=== PATIENT | male | born 1965 | race Caucasian/White ===

== ENCOUNTER → 2022-04-06 08:50 | Outpatient (BNVA) | payer OTHER, SELFPAY | PROVIDERS: Referring Provider Physician Assistant; Visit Provider Specialist | DX: R42 Dizziness and giddiness (principal); G43.711 Chronic migraine without aura, intractable, with status migrainosus; G43.809 Other migraine, not intractable, without status migrainosus; Z98.890 Other specified postprocedural states | CPT/HCPCS: 99204 ==

== ENCOUNTER → 2022-06-27 10:15 | Outpatient (BNVA) | payer OTHER, SELFPAY | PROVIDERS: PCP Physician Assistant; Visit Provider Specialist | DX: R42 Dizziness and giddiness (principal); G43.809 Other migraine, not intractable, without status migrainosus; Z86.79 Personal history of other diseases of the circulatory system | CPT/HCPCS: 99213 ==

== ENCOUNTER 2022-09-07 11:37 | Outpatient (RCR) | payer OTHER, SELFPAY | END 2022-09-14 23:59 | disposition home or self-care (01) | LOC: SPT 11:37 | PROVIDERS: Visit Provider Orthopaedic Surgery | DX: Z47.89 Encounter for other orthopedic aftercare (principal) | CPT/HCPCS: 97110; 97161 ==

== ENCOUNTER 2022-09-15 06:00 | Outpatient (RCR) | payer OTHER, SELFPAY | END 2022-10-14 23:59 | disposition home or self-care (01) | LOC: SPT 06:00 | PROVIDERS: Visit Provider Orthopaedic Surgery | DX: Z47.89 Encounter for other orthopedic aftercare (principal) | CPT/HCPCS: 97110 ==

== ENCOUNTER → 2022-11-29 10:04 | Outpatient (BNVA) | payer OTHER, SELFPAY | PROVIDERS: PCP Physician Assistant; Visit Provider Specialist | DX: G43.711 Chronic migraine without aura, intractable, with status migrainosus (principal); R42 Dizziness and giddiness; G43.809 Other migraine, not intractable, without status migrainosus | CPT/HCPCS: 99213 ==

== ENCOUNTER 2023-01-04 20:52 | Emergency (ER) | payer OTHER, SELFPAY ==
[2023-01-04 21:06] VITALS: BP 161/92; PULSE 82; RESP 17; TEMP 36.6; O2SAT 95; BMI 33.2
--- NOTE | 2023-01-04 21:51 | W.ED.ANIMALB ---
HPI - Animal Bite General: Chief Complaint: Animal Bite Stated Complaint: multiple dog bites to fingers Time Seen by Provider: 01/04/23 21:36 History of Present Illness: Patient presents to the ER with dog bites on multiple fingers. Patient tried to take some food from his dog's mouth and his dog bit him on his left pointer finger and right middle finger. He has lacerations to both bleeding is controlled patient has good cap refill to move all fingers as normal. This was the patient's own dog so they are up-to-date on vaccines and they can watch him. Review of Systems General: Reports: 10 or more systems reviewed and unremarkable except in HPI and below Physical Exam Const: COMMON NORMALS: no acute distress, average body habitus, patient oriented x3, no limitations, healthy appearing, alert and well nourished HENMT: COMMON NORMALS: normocephalic, atraumatic, hearing grossly normal bilaterally, external ears normal, Normal external nose present and moist oral mucous membranes HEAD & SCALP: normocephalic and atraumatic NOSE: Normal external nose present EXTERNAL EAR: Yes external ears normal Neck/C-Spine: COMMON NORMALS: no JVD Chest: COMMONS NORMALS: normal inspection of the chest and normal palpation of entire chest wall Resp: COMMON NORMALS: normal respiratory effort, No retractions, No use of accessory muscles and clear to auscultation bilaterally AUSCULTATION: clear to auscultation bilaterally Cardio: COMMON NORMALS: no JVD, regular rate, regular rhythm, S1 normal heart sound present, S2 normal heart sound present, No gallops present (Cardio), No clicks present (Cardio), No murmurs present (Cardio) and No rub (Cardio) RATE: regular rate RHYTHM: regular rhythm HEART SOUNDS: S1 normal heart sound present and S2 normal heart sound present GI: COMMON NORMALS: Normal to inspection, nondistended, normoactive bowel sounds present, Soft to palpation, non-tender, No hepatosplenomegaly present and no masses PALPATION: Yes Soft to palpation and Yes No hepatosplenomegaly present : COMMON NORMALS: Yes no CVA tenderness BLADDER/KIDNEY EXAM: Yes no CVA tenderness Back/Pelvis: COMMON NORMALS: no CVA tenderness Extremity: NARRATIVE EXTREMITY EXAM: Patient has lacerations to left index finger and right middle finger. Neuro: COMMON NORMALS: patient oriented x3 SENSORIUM/ORIENTATION: Yes alert Procedures Laceration Laceration 1: Site: hand (Left pointer finger) Side (If applicable): left Size (cm): 2.0 Description: linear Depth: involves muscle layer Local Anesthetic: lidocaine 1% Amount of anesthesia used (mL): 3 Pre-repair: wound explored and deep structures intact Skin layer closed with: nylon Size (cm): 4-0 Number of sutures: 5 Technique: simple, interrupted Laceration 2: Site: hand (Right middle finger) Side (If applicable): right Size (cm): 3 Description: linear and irregular Depth: involves muscle layer Local Anesthetic: lidocaine 1% Amount of anesthesia used (mL): 3 Pre-repair: wound explored and deep structures intact Skin layer closed with: nylon Size (cm): 4-0 Number of sutures: 8 Technique: simple, interrupted Course Vital Signs: Vital signs: Vital Signs Temperature 97.9 F 01/04/23 21:06 Pulse Rate 82 01/04/23 21:06 Respiratory Rate 17 01/04/23 21:06 Blood Pressure 161/92 01/04/23 21:06 Pulse Oximetry 95 01/04/23 21:06 Oxygen Delivery Me thod Room Air 01/04/23 21:06 MDM - Animal Bite Medical Decision Making Patient presents to the ER with complaints of dog bite to 2 fingers 1 on each hand. He was patient's own dog. Patient was cleaned up sutured up did well with no problem. Patient be discharged home on Keflex and should follow-up with somebody in approximately 10 to 14 days for possible suture removal. Differential Diagnosis Likely bite by animal and dog bite; Unlikely cat bite or rabies contact Medical Records I reviewed the patient's medical records. Lab Data I reviewed the patient's lab results. No radiology studies performed this visit Discharge Plan Discharge Patient Disposition: Home Clinical Impression: Multiple lacerations Dog bite Qualifiers: Encounter type: initial encounter Qualified Code(s): W54.0XXA - Bitten by dog, initial encounter Condition: Stable Prescriptions: New cephalexin 500 mg capsule 500 mg PO Q6H 7 Days Qty: 28 0RF No Action atorvastatin 40 mg tablet 40 mg PO DAILY doxazosin 8 mg tablet 8 mg PO DAILY fluticasone propionate 50 mcg/actuation spray,suspension 1 spray intranasal DAILY Rx Instructions: administer into each nostril hydroxyzine HCl 50 mg tablet 50 mg PO BID lactulose 10 gram/15 mL solution 10 g PO BID sildenafil 100 mg tablet 100 mg PO DAILY PRN Rx Instructions: administer 30 minutes to 4 hours before activity sodium chloride 0.65 % aerosol,spray 1 spray intranasal BID PRN trazodone 150 mg tablet 150 mg PO DAILY zolpidem 5 mg tablet PO lisinopril 40 mg tablet 30 mg PO BID metoprolol succinate 25 mg tablet extended release 24 hr 25 mg PO BID topiramate 50 mg tablet 50 mg PO DAILY Qty: 90 3RF amitriptyline 25 mg tablet 25 mg PO DAILY Qty: 90 3RF Discharge Orders: Discharge ED (Routine); Ordered 01/04/23 Ordered By: Cain Velazquez Referrals: Jacinto Moore PA-C [Primary Care Provider] - 2 weeks Patient Instructions: Animal Bite (ED), Finger Laceration (ED) Activity Restrictions/Additional Instructions: Please take all your antibiotics as directed. Please follow-up with your primary care physician in the next 10 to 14 days for reevaluation and possible suture removal. Coding Level of Care Code ED Yardage Control Operator Forming for Joe Wilkerson
[2023-01-04] MEDS: cephALEXin 500 mg Capsule PO (22:54)
[2023-01-04] MEDS: lidocaine 1% INJ 10 mL (per mL) 20 ML INJECTION (22:57)
[2023-01-04 23:06] VITALS: BP 122/81; PULSE 70; RESP 18; O2SAT 94
== END 2023-01-04 23:07 | disposition home or self-care (01) ==
PROVIDERS: Emergency Provider Emergency Medicine; PCP Physician Assistant
DX: S61.251A Open bite of left index finger without damage to nail, initial encounter (principal); S61.252A Open bite of right middle finger without damage to nail, initial encounter; W54.0XXA Bitten by dog, initial encounter
CPT/HCPCS: 12002; 99283

== ENCOUNTER → 2023-11-14 08:45 | Outpatient (BNVA) | payer OTHER, SELFPAY | PROVIDERS: PCP Physician Assistant; Referring Provider Specialist; Visit Provider Specialist | DX: R29.90 Unspecified symptoms and signs involving the nervous system (principal); R42 Dizziness and giddiness; G43.809 Other migraine, not intractable, without status migrainosus; G43.711 Chronic migraine without aura, intractable, with status migrainosus | CPT/HCPCS: 99214 ==

== ENCOUNTER → 2024-02-14 09:26 | Outpatient (BNVA) | payer OTHER, SELFPAY | PROVIDERS: PCP Physician Assistant; Visit Provider Specialist | DX: R56.9 Unspecified convulsions (principal); G43.711 Chronic migraine without aura, intractable, with status migrainosus; R29.90 Unspecified symptoms and signs involving the nervous system; R42 Dizziness and giddiness | CPT/HCPCS: 99214 ==

== ENCOUNTER → 2024-06-18 08:30 | Outpatient (BNVA) | payer OTHER, SELFPAY | PROVIDERS: PCP Physician Assistant; Referring Provider Specialist; Visit Provider Specialist | DX: R56.9 Unspecified convulsions (principal) | CPT/HCPCS: 95819 ==

== ENCOUNTER → 2024-06-21 14:46 | Outpatient (BNVA) | payer OTHER, SELFPAY | PROVIDERS: PCP Physician Assistant; Visit Provider Specialist | DX: G43.711 Chronic migraine without aura, intractable, with status migrainosus (principal) | CPT/HCPCS: 64615; J0585 ==

== ENCOUNTER → 2024-06-27 09:17 | Outpatient (BNVA) | payer OTHER, SELFPAY | PROVIDERS: PCP Physician Assistant; Visit Provider Specialist | DX: G40.209 Localization-related (focal) (partial) symptomatic epilepsy and epileptic syndromes with complex partial seizures, not intractable, without status epilepticus (principal); G43.711 Chronic migraine without aura, intractable, with status migrainosus | CPT/HCPCS: 99214 ==

== ENCOUNTER → 2024-10-04 10:47 | Outpatient (BNVA) | payer OTHER, SELFPAY | PROVIDERS: PCP Physician Assistant; Visit Provider Specialist | DX: G43.711 Chronic migraine without aura, intractable, with status migrainosus (principal) | CPT/HCPCS: 64615; 99214; J0585; J9999 ==

== ENCOUNTER → 2024-10-29 15:36 | Outpatient (BNVA) | payer OTHER, SELFPAY | PROVIDERS: PCP Physician Assistant; Visit Provider Specialist | DX: G43.711 Chronic migraine without aura, intractable, with status migrainosus (principal); G40.209 Localization-related (focal) (partial) symptomatic epilepsy and epileptic syndromes with complex partial seizures, not intractable, without status epilepticus | CPT/HCPCS: 99214 ==

== ENCOUNTER → 2025-01-23 10:27 | Outpatient (BNVA) | payer OTHER, SELFPAY | PROVIDERS: PCP Physician Assistant; Visit Provider Specialist | DX: G43.711 Chronic migraine without aura, intractable, with status migrainosus (principal); G40.209 Localization-related (focal) (partial) symptomatic epilepsy and epileptic syndromes with complex partial seizures, not intractable, without status epilepticus; R03.0 Elevated blood-pressure reading, without diagnosis of hypertension | CPT/HCPCS: 64615; 99213; J0585; J9999 ==

== ENCOUNTER → 2025-02-26 14:21 | Outpatient (BNVA) | payer OTHER, SELFPAY | PROVIDERS: PCP Physician Assistant; Visit Provider Specialist | DX: G43.711 Chronic migraine without aura, intractable, with status migrainosus (principal); G40.209 Localization-related (focal) (partial) symptomatic epilepsy and epileptic syndromes with complex partial seizures, not intractable, without status epilepticus; G40.909 Epilepsy, unspecified, not intractable, without status epilepticus; R03.0 Elevated blood-pressure reading, without diagnosis of hypertension | CPT/HCPCS: 99214 ==

== ENCOUNTER 2025-03-17 06:25 | Inpatient (IN) | payer OTHER, SELFPAY ==
--- OUTSIDE RECORDS SUMMARY | 2025-03-10 04:15 | XMS_ITS ---
Author Organization [facility] Address [address] [place] [address] Care Team Providers Care Gunite Mixer Name Role Phone Jacinto Sosa Primary Care Provider Aung Vogel [phone] [facility] Unannamdi iliman Unavailable REASON FOR VISIT 9M F/U KRYSTAL RM 06/13/24 Encounters Encounter Location Date Provider Diagnosis [facility] [address] [place] [address], [place] [address] 03/10/2025 Aung Fish Plan Of Treatment Next Appt Details Provider Name:Aung Fish, 0 08/20/2025 08:45:00 AM, [address] [place] [address], [place], [address], Provider Name:Aung Fish, 0 08/20/2025 09:45:00 AM, [address] [place] [address], [place], [address], Progress Notes * Leydi STEWART EDOB:[birth year] (59 yo M)Acc No.[id number]:03/10/2025 Progress Notes Patient: Leydi Lopez Provider: Duarte Fish MD :1965 A ge:59 Y S ex:Male Date:03/10/2025 Address:[address] [address], [id number] Pcp:LANE Sosa Subjective: * Chief Complaints: * 9 M F/U KRYSTAL SHERMAN OV 06/13/24 * Electronic signature of Aung Fish MD on 03/17/2025 at 06:32 AM BANKING AND FINANCE INSTRUCTOR Sign off status: Pending * Provider: Duarte Fish MD Date: 05/10/2024 Generated for Stephenie louie/Hardik/Torres on: 05/18/2024 06:32 AM BANKING AND FINANCE INSTRUCTOR
[2025-03-17] VITALS (27 sets, daily range): BP systolic 104–135; BP diastolic 61–76; PULSE 66–89; RESP 14–22; TEMP 36.5–39.6; O2SAT 90–100; BMI 34.8; BMI 36.8
--- OUTSIDE RECORDS SUMMARY | 2025-03-17 06:33 | XMS_ITS | Patient Health Record ---
Author Organization [facility] Address [address] [place] [address] Care Team Providers Care Electronic Transaction Implementer Name Role Phone MooreJacinto AHUMADA Primary Care Provider Aung Vogel Unavailable [phone] [facility] Unava ilable Unavailable Luisa Caceres Unavailable [phone] Allergies Allergen (clinical drug ingredient) Drug/Non Drug Allergy documented on EMR Reaction Allergy Type Onset Date Status No Known Drug Allergy Unknown Drug Allergy Active Reason For Referral Reason RFS 03/10/25 APPT FA XED CARDIOLOGY/ EVAL AND TREAT/1 [facility] Diagnosis 1 Palpitations (R00.2) Referring Provider First Name Poonam dennison Referring Provider Last Name [facility] Referring Provider [facility] Referred Organization [facility] Referred Provider Aung Fish Referred Address [address] [place] [address],[place],[address],[place] Referred Provider Specialty Cardiology Referral Priority Routine Reason APPT 03/10/25 CARD IOLOGY/ EVAL & TREAT/ 1 [facility] Diagnosis 1 Presence of prosthet ic heart valve (Z95.2) Referring Provider First Name Poonam dennison Referring Provider Last Name [facility] Referring Provider [facility] Referred Organization [facility] Referred Provider Aung Fish Referred Address [address],[place],[address],[place] Referred Provider Specialty Cardiology Referral Priority Routine Medications Medication SIG (Take, Route, Frequency, Duration) Notes Start Date End Date Status Aspir-Low 81 MG Tablet Delayed Release 1 tablet Orally Once a day Active Citalopram Hydrobromide 40 MG Tablet 1 tablet Orally Once a day 02/26/2025 Active Doxazosin Mesylate 4 MG Tablet 1 tablet Orally Once a day Active traZODone HCl 150 MG Tablet 1 tablet at bedtime Orally Once a day PRN Active Atorvastatin Calcium 40 MG Tablet 0.5 tablet Orally Once a day Active Botox 100 UNIT Solution Reconstituted as directed Injection migraines Activ e Loratadine 10 MG Tablet 1 tablet Orally Once a day Active Sildenafil Citrate 50 MG Tablet 1 tablet as needed Orally PRN Active Zolpidem Tartrate 10 MG Tablet 1 tablet at bedtime Orally Once a day Active Lactulose 10 GM Packet 1 packet as neede d Orally Once a day Active Vitamin D 25 MCG (1000 UT) Tablet 1 tablet Orally Once a day Active Lisinopril 30 MG Tablet 1 tablet Orally Once a day Active Zonisamide 100 MG Capsule 1 capsule Oral ly 5x daily 02/26/2025 Active Social History Tobacco Use: Social History Observation Description Date Details (start date - stop date) Former Smoker NA - NA Social History Drugs/Alcohol: Social Info Question Answer Notes Caffeine Intake: more than 4 cups per day cou ple sodas, coffee, monsters occasionally Tobacco Use: Social Info Question Answer Notes xTobacco Use/Smoking Are you a former smoker How long has it been since you last smoked? 5-10 years Additional Details Category Social Info Options Details Drugs/Alcohol: Do you drink alcohol? No zzMigrated Social History Tobacco Use: (Tobacco Use/Smoking): Are you a:: former smoker ; Section Notes: Alcohol denies Caffiene - positive Alcohol denies Caffiene + Alcohol denies Caffiene + Alcohol denies Caffiene + Alcohol denies Caffiene - positive Alcohol denies Caffiene - positive Problems Problem Type SNOMED Code ICD Code Onset Dates Problem Status W/U Status Risk Notes Problem Palpitations (92795465) Palpitations (R00.2) Active confirmed Problem Electrocardiogram abnormal (402445768) Abnormal electrocardiogram [ECG] [EKG] (R94.31) Active confirmed Problem History of heart valve repair with prosthesis (584421567574634) Presence of prosthetic heart valve (Z95.2) Active confirmed Problem Mixed hyperlipidemia (090131186) Mixed hyperlipidemia (E78.2) Active confirmed Problem Essential hypertension (08750573) Benign essential HTN (I10) Active confirmed Problem Fatigue (76141930) Fatigue, unspecified type (R53.83) Active confirmed Problem Obstructive sleep apnea syndrome (89188005) FANNY (obstructive sleep apnea) (G47.33) Active confirmed Problem Dizziness (992275276) Dizziness (R42) Active confirmed Problem Continuous positive airway pressure ventilation treatment (73070719) CPAP (continuous positive airway pressure) dependence (Z99.89) Active confirmed Problem Mitral regurgitation (90090203) Mitral regurgitation (I34.0) Active confirmed Problem History of heart valve repair with prosthesis (340401444593483) Mitral valve replaced (Z95.2) Active confirmed Vital Signs Heart Rate 66 /min 02/27/2025 Height-cm 182.88 cm 02/27/2025 Oximetry 94 % 02/27/2025 Blood pressure diastolic 82 mm Hg 02/27/2025 Weight-kg 113.85 kg 02/27/2025 Height 72 in 02/27/2025 Blood pressure systolic 128 mm Hg 02/27/2025 Weight 251 lbs 02/27/2025 BMI 34.04 kg/m2 02/27/2025 Encounters Encounter Location Date Provider Diagnosis [facility] [address] [place] [address], [place] [address] 06/13/2024 Luisa [place] Mitral valve replace d Z95.2 ; Mixed hyperlipidemia E78.2 ; Benign essential HTN I10 ; FANNY (obstructive sleep apnea) G47.33 and CPAP (continuous positive airway pressure) dependence Z99.89 [facility] [address] [place] [address] 02/27/2025 [place] Mitral valve replace d Z95.2 ; Benign essential HTN I10 and Mixed hyperlipidemia E78.2 Assessments Encounter Date Diagnosis (ICD Code) Assessment Notes Treatment Notes Treatment Clinical Notes Section Notes 02/27/2025 Mitral valve replaced (ICD-10 - Z95.2) 06/13/2024 Mitral valve replaced (ICD-10 - Z95.2) 02/27/2025 Benign essential HTN (ICD-10 - I10) 06/13/2024 Mixed hyperlipidemia (ICD-10 - E78.2) 06/13/2024 Benign essential HTN (ICD-10 - I10) 02/27/2025 Mixed hyperlipidemia (ICD-10 - E78.2) 06/13/2024 FANNY (obstructive sleep apnea) (ICD-10 - G47.33) 06/13/2024 CPAP (continuous positive airway pressure) dependence (ICD-10 - Z99.89) 06/13/2024 Other Continue with current medical therapies. Worsening cardiac symptoms to report reviewed. 02/27/2025 Other We will continue his current medical regimen. I will see him back in the office in 6 months with a repeat echo at that point. We will see him back sooner as symptoms warrant. Plan Of Treatment Pending Test Test Name Order Date Echo Complete [id number] 02/27/2025 Next Appt Details Provider Name:Aung Fish, 0 08/20/2025 08:45:00 AM, [address] [place], [address], Provider Name:Aung Fish, 0 08/20/2025 09:45:00 AM, [address] [place], [address], Insurance Providers Payer Name Payer Address Payer Phone Subscriber Number Group Number Insured Name Patient Relationship to Insured Coverage Start Date Coverage End Date [employer] [address] [place] [phone] [id number] Leydi Sheehan Self - patient is the insured Medical (General) History Medical History History ICD Code Hypertension Hyperlipidemia Arthritis Seasonal Allergies Constipation Slow urinary stream Sleep apnea Anxiety Mitral Valve prolapse covid vax w/ booster Covid positive 09/2021 Surgical History Surgery Date(Month/Year) Mitral Valve Replacement [facility] [place], Pig valve 11/2017 Mitral Valve Replacement ( Tissue) 8 unbilical hernia repair 05/2014 Right Inguinal Hernia Repair 06/2018 implanted heart monitor 2016 Heart monitor removed 2020 Knee Surgery Hospitalization History Reason Date(Month/Year)
--- OUTSIDE RECORDS SUMMARY | 2025-03-17 06:33 | XMS_ITS | Patient Health Record ---
Author Organization [facility] Address [address] [place] [address] Care Team Providers Care Thermo Cementing Folder Operator Name Role Phone Aaa, Provider Primary Care Provider Unavailabl e Reason For Referral No Information Immunizations Vaccine Route Administration Date Status Comme nts Pfizer-BioNTech COVID-19 30mcg/0.3ml (Old) IM Intramuscular 04/19/2021 Administered Plan Of Treatment No Information Insurance Providers Payer Name Payer Address Payer Phone Subscriber Number Group Number Insured Name Patient Relationship to Insured Coverage Start Date Coverage End Date [employer] MED[employer] PART B [address] [address] [place] [address] [id number] Leydi Sheehan Self - patient is the insured
--- NOTE | 2025-03-17 06:59 | W.ED.ABDPA2 ---
HPI - Abdominal Pain General: Chief Complaint: Abdominal Pain Stated Complaint: abdominal pain Time Seen by Provider: 03/17/25 06:56 History of Present Illness: 59-year-old man with a history of hypertension, hyperlipidemia, temporal seizures, bioprosthetic mitral valve replacement and migraines who presents to the emergency room with right lower quadrant abdominal pain. Says this started yesterday. Has had some nausea but no vomiting. Right lower quadrant pain. No hematuria or dysuria but he says after he urinated today and went and sat down it started hurting worse. He said it started more central as moved further to the right. No fevers. No chest pain. No altered mental status. Normal bowel movements Related Data Home Medications ?Medication ?Instructions ?Recorded ?Confirmed atorvastatin 40 mg tablet 20 mg PO DAILY 04/06/22 03/17/25 doxazosin 8 mg tablet 4 mg PO DAILY 04/06/22 03/17/25 lactulose 10 gram/15 mL oral 10 g PO BID 04/06/22 03/17/25 solution sildenafil 100 mg tablet 100 mg PO DAILY PRN Erectile 04/06/22 03/17/25 Dysfunction trazodone 150 mg tablet 300 mg PO BEDTIME PRN Sleep 04/06/22 03/17/25 zolpidem 5 mg tablet 5 mg PO BEDTIME 04/06/22 03/17/25 acetaminophen 300 mg-codeine 30 mg 1 tab PO .Q4-6H 03/17/25 03/17/25 tablet lamotrigine 100 mg tablet 100 mg PO BID 03/17/25 03/17/25 lisinopril 30 mg tablet 30 mg PO DAILY 03/17/25 03/17/25 Previous Rx's ?Medication ?Instructions ?Recorded diazepam 10 mg tablet 10 mg PO ONCE PRN anxiety 24 hours 01/23/25 #2 tabs citalopram 20 mg tablet 40 mg (2 x 20 mg) PO DAILY #180 02/26/25 tabs zonisamide 100 mg capsule 500 mg (5 x 100 mg) PO DAILY #450 02/26/25 caps Allergies Allergy/AdvReac Type Severity Reaction Status Date / Time No Known Allergies Allergy Verified 01/23/25 10:51 Review of Systems Narrative: Constitutional symptoms: Negative except as documented in HPI. Skin symptoms: Negative except as documented in HPI. Eye symptoms: Negative except as documented in HPI. ENMT symptoms: Negative except as documented in HPI. Respiratory symptoms: Negative except as documented in HPI. Cardiovascular symptoms: Negative except as documented in HPI. Gastrointestinal symptoms: Negative except as documented in HPI. Genitourinary symptoms: Negative except as documented in HPI. Musculoskeletal symptoms: Negative except as documented in HPI. Neurologic symptoms: Negative except as documented in HPI. Psychiatric symptoms: Negative except as documented in HPI. Endocrine symptoms: Negative except as documented in HPI. [facility] ED PFSH: Medical History (Updated 03/17/25 @ 09:57 by Dean Vicente MD) Hypertension Social History Smoking and tobacco/nicotine status: former use of tobacco/nicotine Physical Exam Narrative: EXAM NARRATIVE: General: Alert, no acute distress. Skin: Warm, dry. Head: Normocephalic, atraumatic. Neck: Supple, trachea midline. Eye: Extraocular movements are intact. Ears, nose, mouth and throat: mucosa moist. Cardiovascular: Regular, Normal peripheral perfusion. Respiratory: Lungs are clear to auscultation, respirations are non-labored, breath sounds are equal, Symmetrical chest wall expansion. Gastrointestinal: Soft, patient is very tender to palpation in the right lower quadrant, Non distended Musculoskeletal: Normal ROM, no deformity. Neurological: Alert and oriented, No focal neurological deficit observed. Psychiatric: Cooperative, appropriate mood & affect. Course Vital Signs: Vital signs: Vital Signs Temperature 98.2 F 03/17/25 06:56 Pulse Rate 77 03/17/25 09:51 Respiratory Rate 15 03/17/25 09:47 Blood Pressure 113/69 03/17/25 09:51 Pulse Oximetry 94 03/17/25 09:51 Oxygen Delivery Me thod Room Air 03/17/25 09:47 MDM - Abdominal Pain Medical Decision Making Medical decision making Patient's reason for coming to the emergency room: Right lower quadrant abdominal pain Social determinants: Patient is disabled. I reviewed the patient's medical record. 59-year-old man with a history of hypertension, hyperlipidemia, temporal seizures, bioprosthetic mitral valve replacement and migraines I reviewed the patient's current home meds Patient is not on any anticoagulation. Alternate historians: None Differential diagnosis for this patient with right lower quadrant abdominal pain including but not limited to and based on the above HPI, review of systems and physical exam: Ureterolithiasis. Urinary tract infection. Appendicitis. colitis. small bowel obstruction. Crohn's flare. Pancreatitis. Cholelithiasis or cholecystitis. Hepatitis. Diverticulitis. Constipation. ovarian cyst. ovarian torsion Workup: Orders were placed to evaluate differential diagnosis based on the above differential, HPI and exam: Lab Review: Laboratory results were reviewed and interpreted by myself the emergency room physician. Mild leukocytosis. Elevation of the CRP as well. No anemia. No renal failure. Urinalysis is negative for infection. Flu COVID and RSV are negative. Lactic acid was negative but I did add some blood cultures at the time antibiotics were ordered. Patient had been taken to the preop and so nursing has called preop to request cultures to be drawn. CT of the abdomen pelvis with contrast: Acute appendicitis with distended fecalized appendix with few small locules of surrounding air compatible with perforation. No evidence of drainable abscess or fluid collection. This was reviewed and interpreted by myself the emergency room physician. I also reviewed the radiology report. I discussed this on the telephone with the radiologist Assessment of risk: Level of risk: Moderate risk patient. He does have several comorbidities. Hospitalization considerations: Patient is being admitted for acute appendicitis. Reexamination: Patient remained stable. No increased work of breathing. No altered mental status. No focal motor deficits. Consultation: I spoke with Dr. Mandel. He is taking the patient to the OR. He request consult from medicine for medical management. Consultation: I spoke with Dr. Vicente with the hospitalist service who is consulting on the patient. He saw him here in the emergency room. Assessment and plan: Acute appendicitis with perforation Dehydration ?2 L normal saline bolus and IV Zosyn in the emergency room -I discussed the patient with the surgeon on-call who is admitting the patient. - Discussed findings and plan with patient. Answered any questions. - All laboratory values were reviewed and interpreted personally by myself, the ER physician - All imaging was reviewed and interpreted personally by myself, the ER physician. - Evaluation and treatment of this problem were appropriate in the emergency setting Lab Data 03/17/25 07:41 03/17/25 07:41 Labs/Radiology: Radiology Impressions Abdomen/Pelvis CT 03/17/25 07:52 IMPRESSION: 1. Acute appendicitis with distended fecalized appendix with a few small locules of surrounding air compatible with perforation. No evidence of drainable abscess or fluid collection. 2. Small amount of free fluid in the pelvis. 3. Small LEFT pleural effusion. Notified Mikaela Landeros MD at 03/17/2025 9:16 AM. Laboratory Results WBC 14.03 10^3/uL (3.29-11.43) H 03/17/25 07:41 RBC 4.92 10^6/uL (3.85-5.65) 03/17/25 07:41 Hgb 14.90 g/dL (11.27-16.99) 03/17/25 07:41 Hct 45.5 % (37-53) 03/17/25 07:41 MCV 92.5 fl (82-101) 03/17/25 07:41 MCH 30.3 pg (27-33) 03/17/25 07:41 MCHC 32.7 g/dL (30-55) 03/17/25 07:41 RDW 13.8 % (12.1-15.1) 03/17/25 07:41 Plt Count 164 10^3/cmm (157-399) 03/17/25 07:41 MPV 9.8 fL (7.4-10.4) 03/17/25 07:41 Neut % (Auto) 90.0 % 03/17/25 07:41 Lymph % (Auto) 6.1 % 03/17/25 07:41 [place] % (Auto) 3.3 % 03/17/25 07:41 Eos % (Auto) 0.2 % 03/17/25 07:41 Baso % (Auto) 0.1 % 03/17/25 07:41 Neut # (Auto) 12.61 10^3/uL (1.8-7.7) H 03/17/25 07:41 Lymph # (Auto) 0.9 10^3/uL (0.8-4.8) 03/17/25 07:41 [place] # (Auto) 0.5 10^3/uL (0.2-0.9) 03/17/25 07:41 Eos # (Auto) 0.0 10^3/uL (0.0-0.8) 03/17/25 07:41 Baso # (Auto) 0.0 10^3/uL (0.0-0.1) 03/17/25 07:41 Nucleated RBC % (auto) 0 % 03/17/25 07:41 Nucleated RBCs # 0.0 /100WBC 03/17/25 07:41 Sodium 136 mmol/L (136-145) 03/17/25 07:41 Potassium 4.4 mmol/L (3.5-5.1) 03/17/25 07:41 Chloride 105 mmol/L (98-107) 03/17/25 07:41 Carbon Dioxide 19 mmol/L (22-29) L 03/17/25 07:41 Anion Gap 16.4 (5-19) 03/17/25 07:41 BUN 14 mg/dL (6-20) 03/17/25 07:41 Creatinine 1.1 mg/dL (0.7-1.2) 03/17/25 07:41 GFR Calculation 68.5 mL/min (90-130) L 03/17/25 07:41 Glucose 142 mg/dL (65-115) H 03/17/25 07:41 Calculated Osmolality 285 mOsm/kg (285-295) 03/17/25 07:41 Lactic Acid 1.7 mmol/L (0.5-2.2) 03/17/25 07:41 Calcium 9.1 mg/dL (8.5-10.5) 03/17/25 07:41 Total Bilirubin 1.0 mg/dL (0.15-1.2) 03/17/25 07:41 AST 16 U/L (0-40) 03/17/25 07:41 ALT 22 U/L (0-41) 03/17/25 07:41 Alkaline Phosphatase 74 U/L (40-130) 03/17/25 07:41 C-Reactive Protein 82.2 mg/L (0.0-4.9) H 03/17/25 07:41 Total Protein 7.1 g/dL (6.6-8.7) 03/17/25 07:41 Albumin 4.3 g/dL (3.5-5.2) 03/17/25 07:41 Globulin 2.8 g/dL (1.3-4.6) 03/17/25 07:41 Lipase 74 U/L (13-60) H 03/17/25 07:41 Urine Color Yellow (Yellow) 03/17/25 08:21 Urine Appearance Cloudy (CLEAR) A 03/17/25 08:21 Urine pH 8.0 (5-7) A 03/17/25 08:21 Ur Specific [place] 1.018 (1.005-1.030) 03/17/25 08:21 Urine Protein Negative (Negative) 03/17/25 08:21 Urine Glucose (UA) Negative (Normal) 03/17/25 08:21 Urine Ketones Negative (Negative) 03/17/25 08:21 Urine Blood Negative (Negative) 03/17/25 08:21 Urine Nitrate Negative (Negative) 03/17/25 08:21 Urine Bilirubin Negative (Negative) 03/17/25 08:21 Urine Urobilinogen 0.2 mg/dL (Negative) 03/17/25 08:21 Ur Leukocyte Esterase Negative (Negative) 03/17/25 08:21 Urine RBC None /hpf (0-2) 03/17/25 08:21 Urine WBC None /hpf (0-5) 03/17/25 08:21 Ur Squamous Epith Cells None /hpf (0-5) 03/17/25 08:21 Amorphous Sediment Not Reportable 03/17/25 08:21 Urine Bacteria 2+ /hpf (NONE) H 03/17/25 08:21 Influenza A (PCR) Negative (Negative) 03/17/25 07:50 Influenza Type B (PCR) Negative (Negative) 03/17/25 07:50 RSV (PCR) Negative (Negative) 03/17/25 07:50 SARS-CoV-2 (PCR) Negative (Negative) 03/17/25 07:50 All radiology interpretation(s) finalized by discharge Discharge Plan Discharge Patient Disposition: Admitted As Inpatient Clinical Impression: Acute appendicitis with rupture, Dehydration Condition: Stable Coding Level of Care Code ED Fur Drummer for Joe Wilkerson
[2025-03-17] MEDS: morphine 4 mg/mL SDV 1 mL IVP ×2 (07:45→18:28)
[2025-03-17] MEDS: ondansetron 2 mg/ML SDV 2 mL 4 MG IVP (07:45)
--- NOTE | 2025-03-17 07:52 | CT_ITS ---
WS: [id number] CT ABDOMEN PELVIS TECHNIQUE: Contrast-enhanced CT of the abdomen and pelvis with coronal and sagittal reformatted images. CLINICAL INFORMATION: rlq abd pain COMPARISON: None. DLP: 1184.[address] scans at [facility] use at least one of these dose optimization techniques: automated exposure control; mA and/or kV adjustment per patient size (includes targeted exams where dose is matched to clinical indication); or iterative reconstruction. FINDINGS: Inflammatory stranding and edema in the RIGHT lower quadrant with distended fecalized appendix compatible with acute appendicitis. A few small locules of surrounding air compatible with contained perforation. Surrounding edema. No drainable abscess or fluid collection at this time. Trace LEFT pleural fluid. Interstitial edema in the lung bases with subsegmental atelectasis. Prior sternotomy. Fatty liver. Spleen granulomas. Small esophageal hiatal hernia. Adrenal glands are normal. Normal pancreatic parenchymal enhancement. Splenic artery calcification. Normal portal vein and splenic vein. Mild fluid distention of the gallbladder. Small amount of free fluid in the pelvis. No hydronephrosis in either kidney. Fat-containing RIGHT inguinal hernia. CT/CT abdomen pelvis w con* [id number] IMPRESSION: 1. Acute appendicitis with distended fecalized appendix with a few small locul es of surrounding air compatible with perforation. No evidence of drainable abs cess or fluid collection. 2. Small amount of free fluid in the pelvis. 3. Small LEFT pleural effusion. Notified Mikaela Landeros MD at 03/17/2025 9:16 AM.
[2025-03-17 08:00] LABS: Hematocrit 45.5 % (37-53); Hemoglobin 14.90 g/dL (11.27-16.99); Mean Corpuscular HGB Conc 32.7 g/dL (30-55); Mean Corpuscular Hemoglobin 30.3 pg (27-33); Mean Corpuscular Volume 92.5 fl (82-101); Nucleated Red Blood Cells % 0 %; Platelet Count 164 10^3/cmm (157-399); Red Blood Count 4.92 10^6/uL (3.85-5.65); White Blood Count 14.03 10^3/uL (3.29-11.43)
[2025-03-17 08:18] LABS: Lactic Sepsis W/Reflex 1.7 mmol/L (0.5-2.2)
[2025-03-17 08:23] LABS: Alanine Aminotransferase 22 U/L (0-41); Albumin Level 4.3 g/dL (3.5-5.2); Alkaline Phosphatase 74 U/L (40-130); Anion Gap 16.4 (5-19); Aspartate Amino Transferase 16 U/L (0-40); Blood Urea Nitrogen 14 mg/dL (6-20); Calcium 9.1 mg/dL (8.5-10.5); Carbon Dioxide 19 mmol/L (22-29); Chloride 105 mmol/L (98-107); Creatinine Clr Calc Pharmacy 92.5969; Globulin 2.8 g/dL (1.3-4.6); Glucose 142 mg/dL (65-115); Lipase 74 U/L (13-60); Osmolality Calculated 285 mOsm/kg (285-295); Potassium 4.4 mmol/L (3.5-5.1); Sodium 136 mmol/L (136-145); Total Protein 7.1 g/dL (6.6-8.7)
[2025-03-17] MEDS: iohexol 350 mg/mL 500 mL Btl (per mL) IV (08:35)
[2025-03-17 08:42] LABS: Glucose Urine UA Negative (Normal); Nitrate Urine Negative (Negative); Specific Gravity, Urine 1.018 (1.005-1.030)
[2025-03-17 08:49] LABS: Universal Test for UA Present (0)
[2025-03-17 09:04] LABS: UA Manual Slide Review YES; UA Slide Review UA Slide Review Perf
[2025-03-17 09:33] LABS: Respiratory Syncytial Virus Ce NEGATIVE (Negative); SARS-CoV-2 PCR NEGATIVE (Negative)
--- NOTE | 2025-03-17 09:33 | P.HP_ITS ---
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 He presented to the ER noted to be slightly tachycardic, elevated white count, elevated CRP and a CT scan showed evidence of acute appendicitis with perforation. Of note patient has history of previous ventral hernia repair with mesh. Review of Systems 2 General: Reports: 10 or more systems reviewed and unremarkable except in HPI and below Medications/Allergies Home Medications ?Medication ?Instructions ?Recorded ?Confirmed ?Last Taken ?Type atorvastatin 40 mg tablet 40 mg PO DAILY 04/06/2202/15 Unknown History doxazosin 8 mg tablet 8 mg PO DAILY 04/06/2202/26 Unknown History lactulose 10 gram/15 mL oral 10 g PO BID 04/06/2202/15 Unknown History solution lisinopril 40 mg tablet 30 mg PO BID 04/06/22 Unknown History sildenafil 100 mg tablet 100 mg PO DAILY PRN 04/06/22 02/26/25 Unknown History trazodone 150 mg tablet 150 mg PO DAILY 04/06/2204/10 Unknown History zolpidem 5 mg tablet PO 04/06/22 02/26/25 Unknown History diazepam 10 mg tablet 10 mg PO ONCE PRN anxiety 24 hours 01/23/25 02/26/25 Unknown Rx #2 tabs citalopram 20 mg tablet 40 mg (2 x 20 mg) PO DAILY # 180 02/26/25 02/26/25 Unknown Rx tabs zonisamide 100 mg capsule 500 mg (5 x 100 mg) PO DAILY #450 02/26/25 02/26/25 Unknown Rx caps Allergies Allergy/AdvReac Type Severity Reaction Status Date / Time No Known Allergies Allergy Verified 01/23/25 10:51 PFSH Acute 2 PFSH: Social History Smoking and tobacco/nicotine status: former use of tobacco/nicotine Vitals/I&O/Wt Last Vital Signs Temp 98.2 F 03/17/25 06:56 Pulse 73 03/17/25 06:56 Resp 16 03/17/25 06:56 Pulse Ox 92 03/17/25 06:56 O2 Del Method Room Air 03/17/25 06:56 Weight last 48 hrs Weight 250 lb Physical Exam 2 Narrative: Abdominal examination shows an abdominal soft is tender with localized peritonitis in the right lower quadrant. Rebound tenderness in the right lower quadrant, McBurney positive Data 03/17/25 07:41 03/17/25 07:41 A&P Assessment and plan 1. Acute appendicitis with rupture: Plan: After complete history, physical examination and review of all available clinical data the following is my assessment. Patient presents with an acute appendicitis with perforation, I have independently reviewed imaging which is compatible with a distended appendix with the perforation noted by free air surrounding the appendix. Patient has been started on IV fluids and antibiotics. Due to patient significant medical history including history of valve replacement also temporal lobe epileptic seizures I will obtain a medical consultation, I have offered the patient a laparoscopic possible open appendectomy, I have discussed all risk benefits of the procedure including the risk of injuring or surrounding structures including the small bowel, colon, Bladder ureter, great vessels. I have explained that there is increased risk for abscess formation, he will require 2 to 3 days of antibiotic therapy before being discharged. Have also Explained that since he had history of ventral hernia repair he has increased risk of intra-abdominal viscus injury during entry and that we will have to go through his mesh in order to get into the abdomen. He also understand that he is of the increased risk for the need of conversion to open procedure and possible need of colectomy he shows understanding agrees with the plan. Procedure will be booked immediately due to the emergent nature of the presentation. PDMP PDMP Reviewed: Not Reviewed Attestations 2 Medical Necessity Statement*: Patient will require 72 hours of hospital stay for IV antibiotics after surgery Coding Level of Care Code Acute Code for [facility] Diagnoses Acute appendicitis with rupture K35.32
--- NOTE | 2025-03-17 09:47 | ANES.PREANE2 ---
Pre-Anesthetic Assessment Height/Weight: Height 1.8 m Weight 113.398 kg Temp Pulse Resp Pulse Ox O2 Del Method 98.2 F 73 16 92 Room Air 03/17/25 06:56 03/17/25 06:56 03/17/25 06:56 03/17/25 06:56 03/17/25 06:56 Operation Date: 03/17/25 10:10 Proposed Procedures p Laparoscopic Appendectomy(Not Applicable) - Juancarlos Waldron MD Familial anesthetic complications: None Was Beta David taken within 24 hours: N/A Was Clonidine taken within 24 hours: N/A Last intake: Intake Last Liquid Date 03/16/25 Last Liquid Time 20:00 Last Solid Date 03/16/25 Last Solid Time 20:00 Social No alcohol and No tobacco Exam alert, oriented x 3, clear to auscultation bilaterally and regular rate & rhythm Airway Mallampati: Class IV Dentition: full CV/HEM Hypertension MVP s/p porcine valve replacement Metabolic Hyperlipidemia and Morbid Obesity Neuropsych Seizure Anesthetic Plan ASA status: 3E Anesthesia: General Risk of > 500 ml blood loss (7ml/kg in children): No Medications/Allergies Home Medications ?Medication ?Instructions ?Recorded ?Confirmed ?Last Taken ?Type atorvastatin 40 mg tablet 20 mg PO DAILY 04/06/22 03/17/25 03/16/25 History doxazosin 8 mg tablet 4 mg PO DAILY 04/06/22 03/17/25 03/16/25 History lactulose 10 gram/15 mL oral 10 g PO BID 04/06/22 03/17/25 Unknown History solution sildenafil 100 mg tablet 100 mg PO DAILY PRN Erectile 04/06/22 03/17/25 Unknown History Dysfunction trazodone 150 mg tablet 150 mg PO DAILY 04/06/22 03/17/25 03/16/25 History zolpidem 5 mg tablet 5 mg PO BEDTIME 04/06/22 03/17/25 03/16/25 History diazepam 10 mg tablet 10 mg PO ONCE PRN anxiety 24 hours 01/23/25 03/17/25 Unknown Rx #2 tabs citalopram 20 mg tablet 40 mg (2 x 20 mg) PO DAILY #180 02/26/25 03/17/25 03/16/25 Rx tabs zonisamide 100 mg capsule 500 mg (5 x 100 mg) PO DAILY #450 02/26/25 03/17/25 03/16/25 Rx caps lisinopril 30 mg tablet 30 mg PO DAILY 03/17/25 03/17/25 03/16/25 History Allergies Allergy/AdvReac Type Severity Reaction Status Date / Time No Known Allergies Allergy Verified 01/23/25 10:51 [facility] Anesthesia Social History Smoking and tobacco/nicotine status: former use of tobacco/nicotine Data Anesthesia 03/17/25 07:41 03/17/25 07:41 Short CBC 03/17/25 Range/Units 07:41 WBC 14.03 H (3.29-11.43) 10^3/uL Hgb 14.90 (11.27-16.99) g/dL Hct 45.5 (37-53) % MCV 92.5 (82-101) fl Plt Count 164 (157-399) 10^3/cmm Neut % (Auto) 90.0 % Neut # (Auto) 12.61 H (1.8-7.7) 10^3/uL BMP 03/17/25 07:41 Sodium 136 Potassium 4.4 Chloride 105 Carbon Dioxide 19 L BUN 14 Creatinine 1.1 Glucose 142 H Calcium 9.1 Liver Function 03/17/25 Range/Units 07:41 Total Bilirubin 1.0 (0.15-1.2) mg/dL AST 16 (0-40) U/L ALT 22 (0-41) U/L Alkaline Phosphatase 74 (40-130) U/L Albumin 4.3 (3.5-5.2) g/dL Urine 03/17/25 Range/Units 08:21 Urine Color Yellow (Yellow) Urine Appearance Cloudy A (CLEAR) Urine pH 8.0 A (5-7) Ur Specific [place] 1.018 (1.005-1.030) Urine Protein Negative (Negative) Urine Glucose (UA) Negative (Normal) Urine Ketones Negative (Negative) Urine Nitrate Negative (Negative) Urine Bilirubin Negative (Negative) Ur Leukocyte Esterase Negative (Negative) Urine RBC None (0-2) /hpf Urine WBC None (0-5) /hpf COVID Results 03/17/25 07:50 SARS-CoV-2 (PCR) Negative Coags 03/17/25 07:41 C-Reactive Protein 82.2 H
--- NOTE | 2025-03-17 09:48 | PM.CONSULT ---
Providers/Reason For Consult Consulting Physician/Specialty*: Dr. Dean Vicente MD/Hospitalist Reason for Consult*: Medical management Attending Physician: Juancarlos Waldron MD Primary Care Provider: Jacinto Moore PA-C History of Present Illness History of Present Illness Leydi Sheehan is a 59 year old male with a reported history significant for seizure disorder, mitral valve regurgitation/prolapse s/p mitral valve replacement, and hypertension, who presented to the ED today for abdominal pain. Patient states his lower abdominal pain began yesterday. At the time, he took antancid without relief. He carried on about his day, went to dinner, then went home, all with worsening abdominal pain. He has had flatus and bowel movements without relief. On awakening, the pain remained so he decided to seek medical attention. While in the ED, patient was diagnosed with a ruptured appendicitis. General surgery is arranging for surgical intervention this morning. Hospitalist consult was request for medical management. Medications/Allergies Home Medications ?Medication ?Instructions ?Recorded ?Confirmed ?Last Taken ?Type atorvastatin 40 mg tablet 20 mg PO DAILY 04/06/22 03/17/25 03/16/25 History doxazosin 8 mg tablet 4 mg PO DAILY 04/06/22 03/17/25 03/16/25 History lactulose 10 gram/15 mL oral 10 g PO BID 04/06/22 03/17/25 Unknown History solution sildenafil 100 mg tablet 100 mg PO DAILY PRN Erectile 04/06/22 03/17/25 Unknown History Dysfunction trazodone 150 mg tablet 300 mg PO BEDTIME PRN Sleep 04/06/22 03/17/25 03/16/25 History zolpidem 5 mg tablet 5 mg PO BEDTIME 04/06/22 03/17/25 03/16/25 History diazepam 10 mg tablet 10 mg PO ONCE PRN anxiety 24 hours 01/23/25 03/17/25 Unknown Rx #2 tabs citalopram 20 mg tablet 40 mg (2 x 20 mg) PO DAILY #180 02/26/25 03/17/25 03/16/25 Rx tabs zonisamide 100 mg capsule 500 mg (5 x 100 mg) PO DAILY #450 02/26/25 03/17/25 03/16/25 Rx caps acetaminophen 300 mg-codeine 30 mg 1 tab PO .Q4-6H 03/17/25 03/17/25 03/16/25 21:00 History tablet lamotrigine 100 mg tablet 100 mg PO BID 03/17/25 03/17/25 03/16/25 History lisinopril 30 mg tablet 30 mg PO DAILY 03/17/25 03/17/25 03/16/25 History Allergies Allergy/AdvReac Type Severity Reaction Status Date / Time No Known Allergies Allergy Verified 01/23/25 10:51 PFSH Acute PFSH: Medical History (Updated 03/17/25 @ 10:14 by Dean Vicente MD) Hypertension, unspecified type Social History Smoking and tobacco/nicotine status: former use of tobacco/nicotine Vitals/I&O/Wt Last Vital Signs Temp 98.2 F 03/17/25 06:56 Pulse 73 03/17/25 06:56 Resp 16 03/17/25 06:56 Pulse Ox 92 03/17/25 06:56 O2 Del Method Room Air 03/17/25 06:56 Weight last 48 hrs Weight 113.398 kg Physical Exam Const: COMMON NORMALS: no acute distress, patient oriented x3 and well nourished Neck/C-Spine: COMMON NORMALS: no JVD Resp: COMMON NORMALS: normal respiratory effort, No retractions, No use of accessory muscles and clear to auscultation bilaterally AUSCULTATION: clear to auscultation bilaterally Cardio: COMMON NORMALS: no JVD, regular rhythm, S1 normal heart sound present, S2 normal heart sound present, No gallops present (Cardio), No clicks present (Cardio), No murmurs present (Cardio) and No rub (Cardio) RHYTHM: regular rhythm HEART SOUNDS: S1 normal heart sound present and S2 normal heart sound present GI: OTHER: Generalized tenderness but significantly tender in the lower quadrants Neuro: COMMON NORMALS: patient oriented x3 Skin: COMMON NORMALS: no rashes or lesions noted and no wounds GENERAL SKIN EXAM: no rashes or lesions noted Data 03/17/25 07:41 03/17/25 07:41 A&P Assessment and plan 1. Acute appendicitis with rupture: - Primary to manage - Patient taken back to OR ugently this morning during my encounter 2. Sepsis without acute organ dysfunction, due to unspecified organism: - Patient taken urgently to the OR - Intrabdominal source of infection due to the above - Antibotics ordered for OR 3. Seizures: - Last seizure one month ago and neurology did adjust AEDs - Continue home medications 4. Hypertension, unspecified type: - Controlled - Continue home medications Plan: Hospitalist service will follow during post-op period PDMP PDMP Reviewed: Not Reviewed Coding Level of Care Code Acute Code for [facility] Diagnoses Acute appendicitis with rupture K35.32 Sepsis without acute organ dysfunction, due to unspecified organism A41.9 Sepsis type: sepsis due to unspecified organism Sepsis acute organ dysfunction status: without acute organ dysfunction Seizures R56.9 Hypertension, unspecified type I10 Hypertension type: unspecified
[2025-03-17] MEDS: fentaNYL 50 mcg/mL INJ 2mL IVP ×2 (09:57→13:33)
--- NOTE | 2025-03-17 10:07 | SUR.PREOP ---
ER nurse called to ask pre op to draw blood cultures. reported this to dr mar. He said not to delay antibiotic admin or taking to OR for blood cultures. Reported this to OR nurse.
[2025-03-17] MEDS: piperacillin-tazobactam 4.5 GM in sodium chloride 0.9% (plus) 50 ML IV (10:12)
[2025-03-17] MEDS: lidocaine-epi 1% 20 mL INJ 10 ML INJECTION (11:08)
[2025-03-17] MEDS: BUPivacaine 0.25% INJ 10 mL INJECTION (11:09)
--- NOTE | 2025-03-17 12:15 | PM.OP ---
Operative Report Date of procedure: March 17, 2025 Pre-op diagnosis: Perforated acute appendicitis Post-op diagnosis: Perforated acute appendicitis with feculent peritonitis and abscess Post-op findings: There was a large amount of purulent fluid in the abdomen, terminal ileum appeared severely inflamed from localized peritonitis at that level, there was small interloop abscess there was purulent fluid in the pelvis. There was a phlegmon between the terminal ileum and the appendix, once the phlegmon was resolved the appendix was noted to be perforated with significant stool contamination of the periappendiceal tissue on the right lower quadrant. 2 separate areas of perforation were noted in the appendix close to the tip in the mid section of the appendix, the base appeared healthy Procedure done: Laparoscopic appendectomy Specimens removed/disposition: Appendix Pathology: Peritoneal fluid cultures, appendix Surgeon: Juancarlos Waldron MD Electrical Plumbing Supervisor: [place] STaff Estimated blood loss: 10 Complications: none apparent Brief History: 59-year-old male who presented to the hospital with abdominal pain and CT scan show evidence of acute appendicitis with perforation after discussion of all risk benefits with side to proceed to the OR for laparoscopic possible open appendectomy Procedure: Patient was brought into the OR, placed in a spine position. General anesthesia was given. The abdomen was prepped and draped in the usual sterile fashion. A timeout was conducted. The abdomen was entered in the left upper quadrant with an Optiview technique with a 5 mm trocar, initial pneumoperitoneum during entry was achieved and no evidence of visceral injury was noted. Patient had a mesh in the periumbilical region, the mesh had some fibrinous purulent material adhesed from the peritonitis and it was covering the whole periumbilical area therefore I decided to put my working trocars on the left flank and suprapubic position at oh millimeter trocar was closed in the left flank and the 5 mm in the suprapubic position both under direct visualization. The p patient was placed in a steep Trendelenburg position with the left side down. There was significant purulent fluid in the abdomen, this was aspirated and sent for cultures. There were some interloop adhesions on the terminal ileum, the terminal ileum appeared congested and irritated. There was a phlegmon between the appendix and the terminal ileum, careful blunt dissection was used to open up the phlegmon and as it was a phlegmon was open immediate a question of pus and feculent material was noted consistent with feculent peritonitis in the right lower quadrant. As much fecal material as possible was aspirated with the suction. This some Raytek were placed around the area to try to contain the feculent contamination. I then proceeded to bluntly dissect the appendix from the terminal ileum and the lateral abdominal wall. Once appendix was dissected I was able to grasp the tube and then with careful dissection with LigaSure I proceeded to take down the mesoappendix from the tip of the appendix to the base of the appendix, taking careful consideration of injuring the adjacent structures. Once the base was freed this was noted to be healthy. The appendix was transected at the base with a 45 mm blue load Endo JOSLYN stapler. The staple line appeared hemostatic and healthy. The appendix was retrieved via the left flank trocar in an Endo Catch bag. I then used multiple Ray-Ivy's to remove all the remaining feculent material from the right lower quadrant taking careful consideration of not contaminating the rest of the abdomen, once all the fecaliths and feculent material was removed from that area I then proceeded to aspirate the right lower quadrant and pelvis to ensure no purulent fluid was left. Once all the purulent fluid was aspirated I proceeded to irrigate the abdomen with 3 L of normal saline until the fluid effluent was completely clear. All directives that were inserted into the abdomen were retrieved and a cell count was done and was complete. I then placed a 19 Lithuanian drain in the pelvis with the tip in the right paracolic gutter and delivered this drain through the suprapubic trocar site, the drain was fixed to the skin with #3-0 nylon suture. The left flank trocar was removed and the trocar site was closed under direct visualization with a Enoch-Rosalind suture passer and 0 Vicryl under direct visualization. The pneumoperitoneum was emigrated and the left upper quadrant trocar was subsequently removed. The wounds were irrigated and hemostasis was achieved. The wounds were closed in layers using 3-0 Vicryl for subcutaneous tissue and aquiles for the skin. At the end of the procedure all counts were correct the patient tolerated well the procedure was transferred to the PACU in stable condition.
--- NOTE | 2025-03-17 12:21 | USCV_ITS ---
Leydi Sheehan Age: 59 Gender: M : 1965 Exam Date: 03/17/2025 16:16 Ordering Phys: Soheila Samuel MD Technologist: ADRY Exam Location: [facility] Indication: svt BP: 127 / 76 HR: 78 Rhythm: Sinus Technical Quality: Adequate MEASUREMENTS (Male / Female) Normal Values 2D ECHO LV Diastolic Diameter PLAX 7.0 cm 4.2 - 5.9 / 3.9 - 5.3 cm IVS Diastolic Thickness 0.8 cm 0.6 - 1.0 / 0.6 - 0.9 cm IVS Systolic Thickness 1.0 cm LVPW Diastolic Thickness 1.0 cm 0.6 - 1.0 / 0.6 - 0.9 cm LVPW Systolic Thickness 1.0 cm LVOT Diameter 2.0 cm LV Ejection Fraction 2D Teich 37.7 % LV Ejection Fraction MOD 4C 58.7 % LV Ejection Fraction MOD 2C 61.2 % LV Ejection Fraction 2C AL 65.2 % LA Diameter 5.5 cm RA Systolic Volume 4C AL 129.8 ml RA Systolic Volume 4C MOD 124.3 ml LA Sys Volume AL 100.6 cm cubed LA Sys Volume Index AL 41.5 cm cubed/m squared Aorta at Sinotubular Diameter 2.3 cm IVC Diameter 2.0 cm M-MODE LA Ao Ratio MM 1.5 AV Cusp Separation MM 1.8 cm DOPPLER AV Peak Velocity 137.0 cm/s LVOT Peak Velocity 90.0 cm/s AV Area Cont Eq vti 2.0 cm squared AV Area Cont Eq pk 2.1 cm squared MV Peak Velocity 183.0 cm/s MV Area PHT 6.0 cm squared Mitral E to A Ratio 0.9 TR Peak Velocity 107.0 cm/s TR Peak Gradient 4.6 mmHg TV Peak E Velocity 82.0 cm/s PV Peak Velocity 95.0 cm/s FINDINGS Left Ventricle Normal left ventricular size and systolic function, EF 65%. No regional wall motion abnormalities. Right Ventricle Normal right ventricular size and systolic function. Right Atrium Normal right atrial size. Left Atrium Mildly increased left atrial size. IA Septum Normal appearance of the interatrial septum. Mitral Valve Bioprosthetic valve in the mitral position appears to be well- seated. The gradient across the valve was 13 mmHg with a mean gradient of 8 mmHg Aortic Valve Thickened aortic valve. Tricuspid Valve Jugy-eb-yjixzngm tricuspid valve regurgitation. Estimated pulmonary artery peak systolic pressure probably within normal limits. Pulmonic Valve Pulmonic valve not well visualized. Pericardium No pericardial effusion. Aorta Normal aortic annulus size. IVC Normal inferior vena cava. CONCLUSIONS Normal left ventricular size and systolic function, EF 65%. No regional wall motion abnormalities. Mildly increased left atrial size. Bioprosthetic valve in the mitral position appears to be well- seated. The gradient across the valve was 13 mmHg with a mean gradient of 8 mmHg. Thickened aortic valve. Udjf-hv-wxzledqn tricuspid valve regurgitation. Estimated pulmonary artery peak systolic pressure probably within normal limits. There is no pericardial effusion. There are no intracardiac masses. No similar previous studies are available for comparison Dr Marcell Diamond MD [facility] (Electronically Signed) Final Date: 18 March 2025 08:29 S
--- NOTE | 2025-03-17 12:26 | XR_ITS ---
WS: [id number] Exam: XR chest 1V portable [id number] Date/Time of Exam: 03/17/2025 12:28 PM Reason For Exam: low 02 sats No priors. Lungs are clear and fully inflated. Mild cardiac enlargement. Signs of previous CABG surgery. Bony structures are intact. XR/XR chest 1V portable [id number] IMPRESSION: 1. Cardiomegaly. No acute process noted.
--- NOTE | 2025-03-17 12:36 | ECG_ITS ---
[employer] Test Date: 2025-03-17 Pat Name: Leydi Sheehan Department: Room: 255 Gender: Male Check Processing Clerk: : 1965 Requested By: Soheila Samuel Order Number: [id number] Gasper MD: Marcell Diamond M.D. Measurements Intervals [place] Rate: 85 P: 83 [place]: 267 QRS: -68 QRSD: 154 T: 20 QT: 397 QTc: 474 Interpretive Statements SINUS RHYTHM WITH FIRST DEGREE AV BLOCK WITH OCCASIONAL VENTRICULAR PREMATURE COMPLEXES RIGHT BUNDLE BRANCH BLOCK [120+ ms QRS DURATION, UPRIGHT V1, 40+ ms S IN I/aVL/V4/V5/V6] INFERIOR MYOCARDIAL INFARCTION , OF INDETERMINATE AGE [40+ ms Q WAVE AND/OR ST/T ABNORMALITY IN II/aVF] No previous ECG available for comparison Electronically Signed On 03-18-2025 19:04:53 CALCULATION REVIEWER by Marcell Diamond M.D. [email or web address]
[2025-03-17] MEDS: piperacillin-tazobactam 3.375 GM in sodium chloride 0.9% (plus) 50 ML IV ×2 (14:56→22:29)
[2025-03-17] MEDS: pantoprazole 40 mg SDV IVP (14:56)
[2025-03-17] MEDS: oxyCODONE 5 mg IR Tab/Cap PO ×2 (14:56→22:34)
--- NOTE | 2025-03-17 15:52 | ANE.PACU2 ---
Inpatient post-anesthesia follow up: Airway intact: Yes Vital signs: Temperature 98.9 F Pulse Rate 79 Respiratory Rate 14 Blood Pressure 127/76 Pulse Oximetry 94 Oxygen Delivery Me thod Nasal Cannula Oxygen Flow Rate 2 Fraction of Inspir ed Oxygen Hydration adequate: Yes Nausea and vomiting: No Pain level: 1 Mental status: Baseline
[2025-03-17 17:21] LABS: Anion Gap 15.6 (5-19); Blood Urea Nitrogen 16 mg/dL (6-20); Calcium 8.2 mg/dL (8.5-10.5); Carbon Dioxide 18 mmol/L (22-29); Chloride 108 mmol/L (98-107); Creatinine Clr Calc Pharmacy 92.5969; Glucose 201 mg/dL (65-115); Magnesium 2.0 mg/dL (1.7-2.3); Osmolality Calculated 291 mOsm/kg (285-295); Potassium 4.6 mmol/L (3.5-5.1); Sodium 137 mmol/L (136-145)
--- NOTE | 2025-03-17 17:40 | P.PN_ITS ---
Subjective 2 Subjective: Leydi Sheehan is a 59 year old male with pmhx of HTN, seizures, daytime sleepiness, headaches, former nicotine use, anxiety, depression, severe dizzy spells, ventral hernia repair with mesh, and mitral valve regurgitation/prolapse s/p mitral valve replacement presenting with complaints of abdominal pain. Procedure done: Laparoscopic appendectomy with Surgeon Juancarlos Waldron MD Specimens removed/disposition: Appendix Pathology: Peritoneal fluid cultures, appendix Post-op diagnosis: Perforated acute appendicitis with feculent peritonitis and abscess Medications: Reviewed: Yes Vitals/I&O/Wt Last Vital Signs Temp 98.9 F 03/17/25 15:15 Pulse 74 03/17/25 15:15 Resp 15 03/17/25 15:15 BP 112/67 03/17/25 15:15 Pulse Ox 95 03/17/25 15:15 O2 Del Method Nasal Cannula 03/17/25 15:15 O2 Flow Rate 2 03/17/25 15:15 03/17/25 03/17/25 03/17/25 06:59 14:59 22:59 Intake Total 1390.5 / 1390.5 Output Total 70 / 70 110 / 180 Balance 1320.5 / 1320.5 -110 / 1210.5 Weight last 48 hrs Weight 113.398 kg Physical Exam 2 Const: COMMON NORMALS: no acute distress, patient oriented x3 and well nourished Neck/C-Spine: COMMON NORMALS: no JVD Resp: COMMON NORMALS: normal respiratory effort, No retractions and No use of accessory muscles Cardio: COMMON NORMALS: no JVD, regular rhythm and No murmurs present (Cardio) RHYTHM: regular rhythm GI: OTHER: Generalized tenderness but significantly tender in the lower quadrants Neuro: COMMON NORMALS: patient oriented x3 Skin: COMMON NORMALS: no rashes or lesions noted and no wounds GENERAL SKIN EXAM: no rashes or lesions noted Urinary Catheter Management: Lackey: Cath Placed During This Visit: yes Urinary Catheter Date of Insertion: 03/17/25 Urinary Catheter Time of Insertion: 10:23 Data 03/17/25 07:41 03/17/25 16:57 Micro: Microbiology 03/17/25 10:51 Gram Stain - Final Peritoneal Fluid A&P Assessment and plan 1. Sepsis without acute organ dysfunction, due to unspecified organism: Patient taken urgently to the OR Intrabdominal source of infection due to the above Antibiotics Florastor Fluid resuscitation 2. Seizures: Seizure occurrences began after a 2018 heart surgery Last seizure one month ago and neurology did adjust AEDs Patient had seizure like episodes of shaking and jitters around 02/19/25 ? Continue home medications 3. Chronic migraine without aura, intractable, with status migrainosus: Continue home regimen Regimen includes caffeine, exercise, medical management 4. Chronic fatigue: With daytime sleepiness Continue home regimen including trazodone and zolpidem 5. Plantar fasciitis: Patient normally very active, walks large dog Plantar fasciitis surgery planning for 04/03/25 Fall risk precautions 6. Anxiety and depression: In part secondary to seizures and chronic medical symptoms Continue home regimen 7. Hypertension, unspecified type: BP 112/67 Controlled Continue home medications 8. Acute appendicitis with rupture: Status post emergent OR intervention Patient tolerated the procedure well - transferred stable to PACU then Medsur Procedure done: Laparoscopic appendectomy Specimens removed/disposition: Appendix Pathology: Peritoneal fluid cultures, appendix Post-op diagnosis: Perforated acute appendicitis with feculent peritonitis and abscess Surgeon Juancarlos Waldron MD Pain management PDMP PDMP Reviewed: Not Reviewed Attestations 2 Medical Necessity Statement*: Patient initial hospitalization expected to be greater than two midnights s/p emergent appendectomy, sepsis monitoring, and IV antibiotics. Diagnoses Sepsis without acute organ dysfunction, due to unspecified organism A41.9 Sepsis type: sepsis due to unspecified organism Sepsis acute organ dysfunction status: without acute organ dysfunction Seizures R56.9 Chronic migraine without aura, intractable, with status migrainosus G43.711 Chronic fatigue R53.82 Plantar fasciitis M72.2 Anxiety and depression F41.9; F32.A Hypertension, unspecified type I10 Hypertension type: unspecified Acute appendicitis with rupture K35.32 Time Spent (min) 70
[2025-03-18] VITALS (10 sets, daily range): BP systolic 107–136; BP diastolic 64–86; PULSE 57–84; RESP 15–18; TEMP 36.4–37.4; O2SAT 90–95
[2025-03-18 05:22] LABS: Hematocrit 37.4 % (37-53); Hemoglobin 12.20 g/dL (11.27-16.99); Mean Corpuscular HGB Conc 32.6 g/dL (30-55); Mean Corpuscular Hemoglobin 30.3 pg (27-33); Mean Corpuscular Volume 92.8 fl (82-101); Nucleated Red Blood Cells % 0 %; Platelet Count 135 10^3/cmm (157-399); Red Blood Count 4.03 10^6/uL (3.85-5.65); White Blood Count 14.69 10^3/uL (3.29-11.43)
[2025-03-18 05:36] LABS: Anion Gap 13.6 (5-19); Blood Urea Nitrogen 20 mg/dL (6-20); Calcium 8.4 mg/dL (8.5-10.5); Carbon Dioxide 21 mmol/L (22-29); Chloride 107 mmol/L (98-107); Glucose 132 mg/dL (65-115); Magnesium 2.2 mg/dL (1.7-2.3); Osmolality Calculated 288 mOsm/kg (285-295); Potassium 4.6 mmol/L (3.5-5.1); Sodium 137 mmol/L (136-145)
[2025-03-18] MEDS: piperacillin-tazobactam 3.375 GM in sodium chloride 0.9% (plus) 50 ML IV ×3 (06:06→22:43)
--- NOTE | 2025-03-18 06:55 | P.PN_ITS ---
Subjective 2 Subjective: Postoperative day 1 status post laparoscopic appendectomy for acute appendicitis with perforation and feculent peritonitis. Patient is doing okay, vital signs have remained stable no significant abdominal pain, CARROL drain continues to be seropurulent tolerating diet. Vitals/I&O/Wt Last Vital Signs Temp 97.6 F 03/18/25 03:42 Pulse 57 L 03/18/25 03:42 Resp 16 03/18/25 03:42 BP 107/68 03/18/25 03:42 Pulse Ox 92 03/18/25 03:42 O2 Del Method Room Air 03/18/25 03:42 O2 Flow Rate 2 03/17/25 15:15 03/17/25 03/17/25 03/18/25 14:59 22:59 06:59 Intake Total 1390.5 / 1390.5 50 / 1440.5 975 / 2415.5 Output Total 70 / 70 210 / 280 315 / 595 Balance 1320.5 / 1320.5 -160 / 1160.5 660 / 1820.5 Weight last 48 hrs Weight 267 lb Weight 263 lb 14.4 oz Weight 250 lb Physical Exam 2 GI: OTHER: Benign abdominal examination abdomen is soft appropriately tender to palpation, CARROL drain with seropurulent fluid Urinary Catheter Management: Lackey: Cath Placed During This Visit: yes, but has since been removed by the nurse Reason for Continuing Indwelling Catheter: Decision to DC Catheter Urinary Catheter Date of Insertion: 03/17/25 Urinary Catheter Time of Insertion: 10:23 Date Urinary Catheter Removed: 03/18/25 Time Urinary Catheter Discontinued: 06:10 Data 03/18/25 04:50 03/18/25 04:50 Micro: Microbiology 03/17/25 10:51 Gram Stain - Final Peritoneal Fluid A&P Assessment and plan 1. Acute appendicitis with rupture: Plan: Patient showing good progression, white count is stable all other laboratory workup is unremarkable. We will continue IV antibiotic therapy for another 48 to 72 hours and then when patient transition to the outpatient setting he will transition on the 7-day course of antibiotic. No significant concerning signs of infection at this time. I appreciate the management per medical team. IV fluids were discontinued today Lackey catheter was discontinued today patient has been encouraged to ambulate. PDMP PDMP Reviewed: Not Reviewed Attestations 2 Medical Necessity Statement*: Patient will require 48 to 72 hours of hospital stay for IV antibiotics after perforated acute appendicitis Coding Level of Care Code Acute Code for [facility] Fwd Diagnoses Acute appendicitis with rupture K35.32
[2025-03-18] MEDS: oxyCODONE 5 mg IR Tab/Cap PO ×3 (08:40→22:45)
--- NOTE | 2025-03-18 09:04 | PC.CHAP ---
Pastoral Care Encounter/Spiritual Assessment Type of Contact [] Declined events specialist visit [] Patient/Family/Request visit [] Outpatient visit [] Follow-up visit [] Physician referral [] Code/Alert [x] Routine visit [] Staff referral [] Actively dying [] Patient sleeping [] Family support [] [] Out of room [] Palliative care [] [] Receiving care in room [] Pre-surgical visit [] Trauma [] Long length of stay [] ICU visit [] Other: Relational/Emotional Strength [x] Patient feels connected with others/family/visitors/staff [] Distress [] Loneliness/isolation [] Abandonment Spirituality of Patient [x] Person of Nikia [] Attends Sikhism of their Nikia [x] Believes in Prayer [] Reads Bible or Caodaism materials [] There are Spiritual issues to be addressed Audiology Technician Interventions [x] Prayer [x] Active listening [] Non-anxious presence [x] Spiritual/emotional support [] Crisis/trauma care [] Spiritual counseling [] Bereavement support [] Provided bereavement packet [] Provided Bible/devotional materials [] Provided toy/stuffed animal, coloring book to patient or family member [] Provided Communion [] Anointing/[place] [] Salvation [x] Completed spiritual assessment [] Other: Impact on Illness or Injury [] Angry [] Fearful [] Anxious [] Often cries [] Exhaustion [] Unable to work [] Unable to attend druze [] Unable to walk/stand [] Unable to read [] Unable to drive [] Unable to eat/drink [] Unable to sleep [] Unable to be with family [] Patient intubated [] Other: Summary Time spent with patient 5 min
--- NOTE | 2025-03-18 12:34 | P.PN_ITS ---
Subjective 2 Subjective: 59 yo male with history of hypertension seizures depression underwent laparoscopic appendectomy. Currently postop day 1. States doing mostly okay. On 2 L. States pain mostly controlled. Afebrile. Vitals/I&O/Wt Last Vital Signs Temp 97.6 F 03/18/25 11:07 Pulse 67 03/18/25 11:07 Resp 16 03/18/25 11:07 BP 115/67 03/18/25 11:07 Pulse Ox 91 03/18/25 11:07 O2 Del Method Room Air 03/18/25 11:07 O2 Flow Rate 2 03/17/25 15:15 03/17/25 03/18/25 03/18/25 22:59 06:59 14:59 Intake Total 50 / 1440.5 975 / 2415.5 1290 / 1290 Output Total 210 / 280 315 / 595 Balance -160 / 1160.5 660 / 1820.5 1290 / 1290 Weight last 48 hrs Weight 121.109 kg Weight 119.703 kg Weight 113.398 kg Physical Exam 2 Const: COMMON NORMALS: no acute distress, patient oriented x3 and well nourished Neck/C-Spine: COMMON NORMALS: no JVD Resp: COMMON NORMALS: normal respiratory effort, No retractions and No use of accessory muscles Cardio: COMMON NORMALS: no JVD, regular rhythm and No murmurs present (Cardio) RHYTHM: regular rhythm GI: OTHER: Positive bowel sounds Neuro: COMMON NORMALS: patient oriented x3 Skin: COMMON NORMALS: no rashes or lesions noted and no wounds GENERAL SKIN EXAM: no rashes or lesions noted Urinary Catheter Management: Lackey: Cath Placed During This Visit: yes, but has since been removed by the nurse Reason for Continuing Indwelling Catheter: Decision to DC Catheter Urinary Catheter Date of Insertion: 03/17/25 Urinary Catheter Time of Insertion: 10:23 Date Urinary Catheter Removed: 03/18/25 Time Urinary Catheter Discontinued: 06:10 Data 03/18/25 04:50 03/18/25 04:50 Micro: Microbiology 03/17/25 10:51 Gram Stain - Final Peritoneal Fluid Anaerobic Culture - Preliminary A&P Assessment and plan 1. Acute appendicitis with rupture: 2. Anxiety and depression: 3. Hypertension, unspecified type: Plan: #s/p laproscopic appendectomy --post op care, prn analgesics, abx #Seizures --continue lamictal 100bid #Anxiety/ depression --stable, on ambien HS #HTN --Vitals stable , lisinopril resumed DVT:SCDs PDMP PDMP Reviewed: Not Reviewed Attestations 2 Medical Necessity Statement*: Continue antibiotics, postop care Coding Level of Care Code 85722 Diagnoses Acute appendicitis with rupture K35.32 Anxiety and depression F41.9; F32.A Hypertension, unspecified type I10 Hypertension type: unspecified
[2025-03-18] MEDS: pantoprazole 40 mg SDV IVP (15:24)
[2025-03-19] VITALS (7 sets, daily range): BP systolic 128–148; BP diastolic 83–90; PULSE 65–86; RESP 16–17; TEMP 36.4–36.8; O2SAT 90–92
[2025-03-19 05:37] LABS: Hematocrit 39.8 % (37-53); Hemoglobin 13.20 g/dL (11.27-16.99); Mean Corpuscular HGB Conc 33.2 g/dL (30-55); Mean Corpuscular Hemoglobin 30.1 pg (27-33); Mean Corpuscular Volume 90.7 fl (82-101); Nucleated Red Blood Cells % 0 %; Platelet Count 156 10^3/cmm (157-399); Red Blood Count 4.39 10^6/uL (3.85-5.65); White Blood Count 14.86 10^3/uL (3.29-11.43)
[2025-03-19 05:56] LABS: Anion Gap 15.3 (5-19); Blood Urea Nitrogen 18 mg/dL (6-20); Calcium 8.6 mg/dL (8.5-10.5); Carbon Dioxide 22 mmol/L (22-29); Chloride 105 mmol/L (98-107); Glucose 122 mg/dL (65-115); Magnesium 2.0 mg/dL (1.7-2.3); Osmolality Calculated 289 mOsm/kg (285-295); Potassium 4.3 mmol/L (3.5-5.1); Sodium 138 mmol/L (136-145)
[2025-03-19] MEDS: piperacillin-tazobactam 3.375 GM in sodium chloride 0.9% (plus) 50 ML IV ×3 (06:00→23:10)
--- NOTE | 2025-03-19 06:09 | PHA.VACGOAL ---
Vancomycin Goal - Goal Vancomycin Goal:: 15-20 mg/L Vancomycin Indication:: Other - Therapy Current therapy:: Pip/Tazo Day of therpy:: Day []of [] . Actual body weight (kg): 268 lb 6 oz - Data Labs: WBC 14.86 10^3/uL (3.29-11.43) H 03/19/25 04:41 RBC 4.39 10^6/uL (3.85-5.65) 03/19/25 04:41 Hgb 13.20 g/dL (11.27-16.99) 03/19/25 04:41 Hct 39.8 % (37-53) 03/19/25 04:41 MCV 90.7 fl (82-101) 03/19/25 04:41 MCH 30.1 pg (27-33) 03/19/25 04:41 MCHC 33.2 g/dL (30-55) 03/19/25 04:41 RDW 14.0 % (12.1-15.1) 03/19/25 04:41 Sodium 138 mmol/L (136-145) 03/19/25 04:41 Potassium 4.3 mmol/L (3.5-5.1) 03/19/25 04:41 Chloride 105 mmol/L (98-107) 03/19/25 04:41 Carbon Dioxide 22 mmol/L (22-29) 03/19/25 04:41 Anion Gap 15.3 (5-19) 03/19/25 04:41 BUN 18 mg/dL (6-20) 03/19/25 04:41 Creatinine 1.0 mg/dL (0.7-1.2) 03/19/25 04:41 GFR Calculation 76.5 mL/min (90-130) L 03/19/25 04:41 Last dialysis session:: N/A Treatment plan:: new consult Regimen:: LOADING DOSE OF 3000 MG X 1 PER DOSING PROTOCOL PLAN TO START A MAINTENANCE DOSE OF 1500 MG Q8H Follow up:: WILL CONTINUE TO MONITOR AND FOLLOW UP DAILY
--- NOTE | 2025-03-19 07:40 | P.PN_ITS ---
Subjective 2 Subjective: 59-year-old male who is postoperative da y 2 status post laparoscopic appendectomy for perforated appendicitis with feculent peritonitis. Patient is doing well pain control was suboptimal overnight but now he is feeling better he thinks he has a lot of gas and has been passing gas consistently. No bowel movement yet. Voiding well Vitals/I&O/Wt Last Vital Signs Temp 98.2 F 03/19/25 03:38 Pulse 86 03/19/25 03:38 Resp 16 03/19/25 03:38 BP 143/90 03/19/25 03:38 Pulse Ox 90 03/19/25 03:38 O2 Del Method Room Air 03/19/25 03:38 O2 Flow Rate 2 03/17/25 15:15 03/18/25 03/19/25 03/19/25 22:59 06:59 14:59 Intake Total 1245 / 2535 931.667 / 3466.667 1000 / 1000 Output Total 520 / 520 200 / 720 Balance 2014 731.667 / 2746.667 1000 / 1000 Weight last 48 hrs Weight 268 lb 6 oz Weight 267 lb Weight 263 lb 14.4 oz Physical Exam 2 Narrative: His abdominal examination is benign there is good bowel sounds abdomen soft appropriately tender nondistended the CARROL drain has serous effluent Urinary Catheter Management: Lackey: Cath Placed During This Visit: yes, but has since been removed by the nurse Reason for Continuing Indwelling Catheter: Decision to DC Catheter Urinary Catheter Date of Insertion: 03/17/25 Urinary Catheter Time of Insertion: 10:23 Date Urinary Catheter Removed: 03/18/25 Time Urinary Catheter Discontinued: 06:10 Data 03/19/25 04:41 03/19/25 04:41 Micro: Microbiology 03/17/25 10:51 Gram Stain - Final Peritoneal Fluid Anaerobic Culture - Preliminary Body Fluid Culture - Preliminary Gram Negative Rods Gram Negative Rods#2 A&P Assessment and plan 1. Sepsis without acute organ dysfunction, due to unspecified organism: 2. Acute appendicitis with rupture: Plan: Patient showing good progression the effluent of the CARROL is now serous, vitals are stable. His white count has remained stable at 14 I hope there are some improvement in the next 24 to 48 hours as he clinically looks very well. Will allow him to have a GI soft diet. I have added vancomycin to his antibiotics for additional coverage until we have results of the peritoneal fluid cultures. He shows understanding he agrees with the plan he will ambulate is much as possible today. Medical management of comorbidities appreciated. PDMP PDMP Reviewed: Not Reviewed Attestations 2 Medical Necessity Statement*: Patient will require another 24 to 48 hours of hospital stay for IV antibiotics. Coding Level of Care Code Acute Code for [facility] Fwd Diagnoses Sepsis without acute organ dysfunction, due to unspecified organism A41.9 Sepsis type: sepsis due to unspecified organism Sepsis acute organ dysfunction status: without acute organ dysfunction Acute appendicitis with rupture K35.32
[2025-03-19] MEDS: oxyCODONE 5 mg IR Tab/Cap PO ×2 (13:46→23:17)
[2025-03-19] MEDS: pantoprazole 40 mg SDV IVP (14:07)
--- NOTE | 2025-03-19 15:51 | P.PN_ITS ---
Subjective 2 Subjective: Leydi Sheehan is a 59 year old male with pmhx of HTN, seizures, daytime sleepiness, headaches, former nicotine use, anxiety, depression, severe dizzy spells, ventral hernia repair with mesh, and mitral valve regurgitation/prolapse s/p mitral valve replacement presenting with complaints of abdominal pain. Procedure done: Laparoscopic appendectomy with Surgeon Juancarlos Waldron MD Specimens removed/disposition: Appendix Pathology: Peritoneal fluid cultures, appendix Post-op diagnosis: Perforated acute appendicitis with feculent peritonitis and abscess 03/19/25 Post op day two. Patient walked at least 250 feet with his and tolerated well. He does have pain - managed. Patient able to tolerate some food. Needs to have a BM. Discharge planning. Medications: Reviewed: Yes Vitals/I&O/Wt Last Vital Signs Temp 98.1 F 03/19/25 11:52 Pulse 65 03/19/25 11:52 Resp 16 03/19/25 13:46 BP 132/83 03/19/25 11:52 Pulse Ox 92 03/19/25 11:52 O2 Del Method Room Air 03/19/25 11:52 O2 Flow Rate 2 03/17/25 15:15 03/19/25 03/19/25 03/19/25 06:59 14:59 22:59 Intake Total 931.667 / 3466.667 1890 / 1890 300 / 2190 Output Total 200 / 720 225 / 225 Balance 731.667 / 2746.667 1665 / 1665 300 / 1965 Weight last 48 hrs Weight 121.733 kg Weight 121.109 kg Physical Exam 2 Const: COMMON NORMALS: no acute distress, patient oriented x3 and well nourished Neck/C-Spine: COMMON NORMALS: no JVD Resp: COMMON NORMALS: normal respiratory effort, No retractions and No use of accessory muscles Cardio: COMMON NORMALS: no JVD, regular rhythm and No murmurs present (Cardio) RHYTHM: regular rhythm GI: OTHER: Generalized tenderness but significantly tender in the lower quadrants Neuro: COMMON NORMALS: patient oriented x3 Skin: COMMON NORMALS: no rashes or lesions noted and no wounds GENERAL SKIN EXAM: no rashes or lesions noted Urinary Catheter Management: Lackey: Cath Placed During This Visit: yes, but has since been removed by the nurse Reason for Continuing Indwelling Catheter: Decision to DC Catheter Urinary Catheter Date of Insertion: 03/17/25 Urinary Catheter Time of Insertion: 10:23 Date Urinary Catheter Removed: 03/18/25 Time Urinary Catheter Discontinued: 06:10 Data 03/19/25 04:41 03/19/25 04:41 Micro: Microbiology 03/17/25 10:51 Gram Stain - Final Peritoneal Fluid Anaerobic Culture - Preliminary Body Fluid Culture - Preliminary Gram Negative Rods Gram Negative Rods#2 A&P Assessment and plan 1. Acute appendicitis with rupture: Status post emergent OR intervention Patient tolerated the procedure well - [facility] Procedure done: Laparoscopic appendectomy Specimens removed/disposition: Appendix Pathology: Peritoneal fluid cultures, appendix Post-op diagnosis: Perforated acute appendicitis with feculent peritonitis and abscess Surgeon Juancarlos Waldron MD Pain management Patient needs to have BM Tolerating foods Bowel regimen including home lactulose 2. Sepsis without acute organ dysfunction, due to unspecified organism: Patient taken urgently to the OR Intrabdominal source of infection due to the above Antibiotics Florastor Fluid resuscitation 3. Seizures: Seizure occurrences began after a 2018 heart surgery Last seizure one month ago and neurology did adjust AEDs Patient had seizure like episodes of shaking and jitters around 02/19/25 ? Continue home medications 4. Chronic migraine without aura, intractable, with status migrainosus: Continue home regimen Regimen includes caffeine, exercise, medical management 5. Chronic fatigue: With daytime sleepiness Continue home regimen including trazodone and zolpidem 6. Plantar fasciitis: Patient normally very active, walks large dog Plantar fasciitis surgery planning for 04/03/25 Fall risk precautions 7. Anxiety and depression: In part secondary to seizures and chronic medical symptoms Continue home regimen 8. Hypertension, unspecified type: BP 112/67 Controlled Continue home medications PDMP PDMP Reviewed: Not Reviewed Attestations 2 Medical Necessity Statement*: Patient initial hospitalization expected to be greater than two midnights s/p emergent appendectomy, sepsis monitoring, and IV antibiotics. Diagnoses Acute appendicitis with rupture K35.32 Sepsis without acute organ dysfunction, due to unspecified organism A41.9 Sepsis acute organ dysfunction status: without acute organ dysfunction Sepsis type: sepsis due to unspecified organism Seizures R56.9 Chronic migraine without aura, intractable, with status migrainosus G43.711 Chronic fatigue R53.82 Plantar fasciitis M72.2 Anxiety and depression F41.9; F32.A Hypertension, unspecified type I10 Hypertension type: unspecified
[2025-03-19] MEDS: lactulose oral liq 20 gm/30 mL UDC 10 GM PO (16:19)
[2025-03-19] MEDS: HYDROmorphone 0.5 MG/0.5 ML INJ IVP (17:33)
[2025-03-20] VITALS (9 sets, daily range): BP systolic 129–158; BP diastolic 70–93; PULSE 60–72; RESP 16–17; TEMP 36.4–37.1; O2SAT 90–92
[2025-03-20] MEDS: polyethylene glycol 3350 Pkt 17 gm PO (04:40)
[2025-03-20 05:10] LABS: Hematocrit 37.1 % (37-53); Hemoglobin 12.30 g/dL (11.27-16.99); Mean Corpuscular HGB Conc 33.2 g/dL (30-55); Mean Corpuscular Hemoglobin 30.4 pg (27-33); Mean Corpuscular Volume 91.6 fl (82-101); Nucleated Red Blood Cells % 0 %; Platelet Count 156 10^3/cmm (157-399); Red Blood Count 4.05 10^6/uL (3.85-5.65); White Blood Count 10.27 10^3/uL (3.29-11.43)
[2025-03-20 05:40] LABS: Anion Gap 14.8 (5-19); Blood Urea Nitrogen 19 mg/dL (6-20); Calcium 8.5 mg/dL (8.5-10.5); Carbon Dioxide 21 mmol/L (22-29); Chloride 107 mmol/L (98-107); Glucose 102 mg/dL (65-115); Magnesium 1.9 mg/dL (1.7-2.3); Osmolality Calculated 290 mOsm/kg (285-295); Potassium 3.8 mmol/L (3.5-5.1); Sodium 139 mmol/L (136-145)
--- NOTE | 2025-03-20 06:59 | P.PN_ITS ---
Subjective 2 Subjective: This is a 59-year-old male close postoperative day 3 status post laparoscopic appendectomy for perforated acute appendicitis with feculent peritonitis. Patient is doing very well no significant issues abdominal pain is better controlled passing gas has not had a bowel movement yet. Vitals/I&O/Wt Last Vital Signs Temp 97.9 F 03/20/25 04:00 Pulse 60 03/20/25 04:00 Resp 17 03/20/25 04:00 BP 138/72 03/20/25 04:00 Pulse Ox 91 03/20/25 04:00 O2 Del Method Room Air 03/20/25 04:00 O2 Flow Rate 2 03/17/25 15:15 03/19/25 03/19/25 03/20/25 14:59 22:59 06:59 Intake Total 1890 / 1890 890 / 2780 50 / 2830 Output Total 225 / 225 975 / 1200 600 / 1800 Balance 1665 / 1665 -85 / 1580 -550 / 1030 Weight last 48 hrs Weight 258 lb Weight 268 lb 6 oz Physical Exam 2 GI: OTHER: Abdomen soft nontender nondistended, drain output is serous Urinary Catheter Management: Lackey: Cath Placed During This Visit: yes, but has since been removed by the nurse Reason for Continuing Indwelling Catheter: Decision to DC Catheter Urinary Catheter Date of Insertion: 03/17/25 Urinary Catheter Time of Insertion: 10:23 Date Urinary Catheter Removed: 03/18/25 Time Urinary Catheter Discontinued: 06:10 Data 03/20/25 04:56 03/20/25 04:56 Micro: Microbiology 03/17/25 10:51 Gram Stain - Final Peritoneal Fluid Anaerobic Culture - Preliminary Body Fluid Culture - Preliminary Gram Negative Rods Gram Negative Rods#2 A&P Assessment and plan 1. Acute appendicitis with rupture: Plan: Excellent progression over the last 24 hours, white count is now normal. Abdominal examination is benign patient is in good spirits and wants to go home. We will continue to monitor for the next 12 hours a better afternoon he is doing okay and has had a bowel movement we will allow him to go home. PDMP PDMP Reviewed: Not Reviewed Attestations 2 Medical Necessity Statement*: Possible discharge today if he is doing okay Coding Level of Care Code Acute Code for [facility] Diagnoses Acute appendicitis with rupture K35.32
[2025-03-20] MEDS: oxyCODONE 5 mg IR Tab/Cap PO ×2 (07:13→14:00)
[2025-03-20] MEDS: piperacillin-tazobactam 3.375 GM in sodium chloride 0.9% (plus) 50 ML IV ×2 (08:35→18:10)
[2025-03-20] MEDS: HYDROmorphone 0.5 MG/0.5 ML INJ IVP ×2 (10:53→18:10)
[2025-03-20] MEDS: pantoprazole 40 mg SDV IVP (15:12)
--- NOTE | 2025-03-20 16:18 | P.PN_ITS ---
Documented by User: Lia Coello NP 03/20/25 16:19 Vitals/I&O/Wt Last Vital Signs Temp 97.6 F 03/20/25 11:24 Pulse 70 03/20/25 11:24 Resp 16 03/20/25 14:00 BP 141/70 03/20/25 11:24 Pulse Ox 90 03/20/25 11:24 O2 Del Method Room Air 03/20/25 11:24 O2 Flow Rate 2 03/17/25 15:15 03/20/25 03/20/25 03/20/25 06:59 14:59 22:59 Intake Total 50 / 2830 1310 / 1310 Output Total 600 / 1800 1625 / 1625 Balance -550 / 1030 -315 / -315 Weight last 48 hrs Weight 117.027 kg Weight 121.733 kg Physical Exam 2 Urinary Catheter Management: Lackey: Cath Placed During This Visit: yes, but has since been removed by the nurse Reason for Continuing Indwelling Catheter: Decision to DC Catheter Urinary Catheter Date of Insertion: 03/17/25 Urinary Catheter Time of Insertion: 10:23 Date Urinary Catheter Removed: 03/18/25 Time Urinary Catheter Discontinued: 06:10 Data 03/20/25 04:56 03/20/25 04:56 Micro: Microbiology 03/17/25 10:51 Gram Stain - Final Peritoneal Fluid Anaerobic Culture - Preliminary Body Fluid Culture - Final Pseudomonas aeruginosa Escherichia coli A&P PDMP PDMP Reviewed: Not Reviewed Coding Level of Care Code 96376 Documented by User: GARRET Alex, [employer] 03/20/25 17:06 Subjective 2 Subjective: 03/18/25 Leydi Sheehan is a 59 year old male with pmhx of HTN, seizures, daytime sleepiness, headaches, former nicotine use, anxiety, depression, severe dizzy spells, ventral hernia repair with mesh, and mitral valve regurgitation/prolapse s/p mitral valve replacement presenting with complaints of abdominal pain. Procedure done: Laparoscopic appendectomy with Surgeon Juancarlos Waldron MD Specimens removed/disposition: Appendix Pathology: Peritoneal fluid cultures, appendix Post-op diagnosis: Perforated acute appendicitis with feculent peritonitis and abscess 03/19/25 Post op day two. Patient walked at least 250 feet with his and tolerated well. He does have pain - managed. Patient able to tolerate some food. Needs to have a BM. Discharge planning. 03/20/25 Post op day 3. Patient has tolerable abdominal pain. Maintains activity. Patient had BM today. Discharge pending Physical Exam 2 Const: COMMON NORMALS: no acute distress, patient oriented x3 and well nourished Neck/C-Spine: COMMON NORMALS: no JVD Resp: COMMON NORMALS: normal respiratory effort, No retractions and No use of accessory muscles Cardio: COMMON NORMALS: no JVD, regular rhythm and No murmurs present (Cardio) RHYTHM: regular rhythm GI: PALPATION: Yes Tenderness to palpation present (GI) Neuro: COMMON NORMALS: patient oriented x3 Skin: COMMON NORMALS: no rashes or lesions noted and no wounds GENERAL SKIN EXAM: no rashes or lesions noted Urinary Catheter Management: Lackey: Cath Placed During This Visit: yes, but has since been removed by the nurse Data 03/20/25 04:56 03/20/25 04:56 A&P PDMP PDMP Reviewed: Not Reviewed Attestations 2 Medical Necessity Statement*: Patient expected to stay less than two midnights - status post op day three, no significant challenges with exception of needing BM post op. See plan as above.
[2025-03-20] MEDS: Fleet Enema 133 mL Enema PR (16:44)
--- NOTE | 2025-03-20 17:30 | PM.DCS ---
Discharge Providers Date of Admission: 03/17/25 14:27 Date of Discharge: March 20, 2025 Attending Provider at Admission: Juancarlos Waldron MD Attending Provider at Discharge: Juancarlos Waldron MD Consults: Hospitalist Team: Marissa Hartman APRN Primary Care Provider: Jacinto Moore PA-C Diagnoses at Discharge Discharge Diagnosis 1. Acute appendicitis with rupture: Details from hospital stay: 03/18/25 Leydi Sheehan is a 59 year old male with pmhx of HTN, seizures, daytime sleepiness, headaches, former nicotine use, anxiety, depression, severe dizzy spells, ventral hernia repair with mesh, and mitral valve regurgitation/prolapse s/p mitral valve replacement presenting with complaints of abdominal pain. Procedure done: Laparoscopic appendectomy with Surgeon Juancarlos Waldron MD Specimens removed/disposition: Appendix Pathology: Peritoneal fluid cultures, appendix Post-op diagnosis: Perforated acute appendicitis with feculent peritonitis and abscess 03/19/25 Post op day two. Patient walked at least 250 feet with his and tolerated well. He does have pain - managed. Patient able to tolerate some food. Needs to have a BM. Discharge planning. 03/20/25 Post op day 3. Patient has tolerable abdominal pain. Maintains activity. Lactulose, colace, miralax, and enema given. Patient finally was able to have BM in the 1700 hour. Discharge pending with home pain medication, PO antibiotics, and follow up outpatient. at bedside. Reason for Visit Reason for Visit: abdominal pain Physical Exam Const: COMMON NORMALS: no acute distress, patient oriented x3 and well nourished Resp: COMMON NORMALS: normal respiratory effort, No retractions and No use of accessory muscles Cardio: COMMON NORMALS: regular rhythm and No murmurs present (Cardio) RHYTHM: regular rhythm GI: OTHER: Generalized tenderness but significantly tender in the lower quadrants Neuro: COMMON NORMALS: patient oriented x3 Skin: COMMON NORMALS: no rashes or lesions noted and no wounds GENERAL SKIN EXAM: no rashes or lesions noted Urinary Catheter Management: Lackey: Cath Placed During This Visit: yes, but has since been removed by the nurse Reason for Continuing Indwelling Catheter: Decision to DC Catheter Urinary Catheter Date of Insertion: 03/17/25 Urinary Catheter Time of Insertion: 10:23 Date Urinary Catheter Removed: 03/18/25 Time Urinary Catheter Discontinued: 06:10 Discharge Data Studies Completed and Pending Completed Studies During Hospitalization Category Date Time Status CT abdomen pelvis w con* [id number] Stat Cat Scan 03/17/25 07:52 Completed XR chest 1V portable [id number] Stat Exams 03/17/25 12:26 Completed CV. echo complete* [id number] Routine Ultrasound 03/17/25 12:21 Completed Pending at discharge Category Date Time Status Anaerobic Culture Routine Lab 03/17/25 10:51 Results Body Fluid Culture & GS Routine Lab 03/17/25 10:51 Results Pathology: Surgical [PTH] Routine Pth 03/17/25 12:12 Received Radiology Impressions Abdomen/Pelvis CT 03/17/25 07:52 IMPRESSION: 1. Acute appendicitis with distended fecalized appendix with a few small locules of surrounding air compatible with perforation. No evidence of drainable abscess or fluid collection. 2. Small amount of free fluid in the pelvis. 3. Small LEFT pleural effusion. Notified Mikaela Landeros MD at 03/17/2025 9:16 AM. Chest X-Ray 03/17/25 12:26 IMPRESSION: 1. Cardiomegaly. No acute process noted. Laboratory Results WBC 10.27 10^3/uL (3.29-11.43) 03/20/25 04:56 RBC 4.05 10^6/uL (3.85-5.65) 03/20/25 04:56 Hgb 12.30 g/dL (11.27-16.99) 03/20/25 04:56 Hct 37.1 % (37-53) 03/20/25 04:56 MCV 91.6 fl (82-101) 03/20/25 04:56 MCH 30.4 pg (27-33) 03/20/25 04:56 MCHC 33.2 g/dL (30-55) 03/20/25 04:56 RDW 13.9 % (12.1-15.1) 03/20/25 04:56 Plt Count 156 10^3/cmm (157-399) L 03/20/25 04:56 MPV 9.8 fL (7.4-10.4) 03/20/25 04:56 Neut % (Auto) 80.8 % 03/20/25 04:56 Lymph % (Auto) 9.1 % 03/20/25 04:56 [place] % (Auto) 6.3 % 03/20/25 04:56 Eos % (Auto) 3.0 % 03/20/25 04:56 Baso % (Auto) 0.3 % 03/20/25 04:56 Neut # (Auto) 8.30 10^3/uL (1.8-7.7) H 03/20/25 04:56 Lymph # (Auto) 0.9 10^3/uL (0.8-4.8) 03/20/25 04:56 [place] # (Auto) 0.7 10^3/uL (0.2-0.9) 03/20/25 04:56 Eos # (Auto) 0.3 10^3/uL (0.0-0.8) 03/20/25 04:56 Baso # (Auto) 0.0 10^3/uL (0.0-0.1) 03/20/25 04:56 Nucleated RBC % (auto) 0 % 03/20/25 04:56 Nucleated RBCs # 0.0 /100WBC 03/20/25 04:56 Sodium 139 mmol/L (136-145) 03/20/25 04:56 Potassium 3.8 mmol/L (3.5-5.1) 03/20/25 04:56 Chloride 107 mmol/L (98-107) 03/20/25 04:56 Carbon Dioxide 21 mmol/L (22-29) L 03/20/25 04:56 Anion Gap 14.8 (5-19) 03/20/25 04:56 BUN 19 mg/dL (6-20) 03/20/25 04:56 Creatinine 0.8 mg/dL (0.7-1.2) 03/20/25 04:56 GFR Calculation 98.9 mL/min (90-130) 03/20/25 04:56 Glucose 102 mg/dL (65-115) 03/20/25 04:56 Calculated Osmolality 290 mOsm/kg (285-295) 03/20/25 04:56 Lactic Acid 1.7 mmol/L (0.5-2.2) 03/17/25 07:41 Calcium 8.5 mg/dL (8.5-10.5) 03/20/25 04:56 Phosphorus 3.2 mg/dL (2.5-4.5) 03/20/25 04:56 Magnesium 1.9 mg/dL (1.7-2.3) 03/20/25 04:56 Total Bilirubin 1.0 mg/dL (0.15-1.2) 03/17/25 07:41 AST 16 U/L (0-40) 03/17/25 07:41 ALT 22 U/L (0-41) 03/17/25 07:41 Alkaline Phosphatase 74 U/L (40-130) 03/17/25 07:41 C-Reactive Protein 82.2 mg/L (0.0-4.9) H 03/17/25 07:41 Total Protein 7.1 g/dL (6.6-8.7) 03/17/25 07:41 Albumin 4.3 g/dL (3.5-5.2) 03/17/25 07:41 Globulin 2.8 g/dL (1.3-4.6) 03/17/25 07:41 Lipase 74 U/L (13-60) H 03/17/25 07:41 Urine Color Yellow (Yellow) 03/17/25 08:21 Urine Appearance Cloudy (CLEAR) A 03/17/25 08:21 Urine pH 8.0 (5-7) A 03/17/25 08:21 Ur Specific [place] 1.018 (1.005-1.030) 03/17/25 08:21 Urine Protein Negative (Negative) 03/17/25 08:21 Urine Glucose (UA) Negative (Normal) 03/17/25 08:21 Urine Ketones Negative (Negative) 03/17/25 08:21 Urine Blood Negative (Negative) 03/17/25 08:21 Urine Nitrate Negative (Negative) 03/17/25 08:21 Urine Bilirubin Negative (Negative) 03/17/25 08:21 Urine Urobilinogen 0.2 mg/dL (Negative) 03/17/25 08:21 Ur Leukocyte Esterase Negative (Negative) 03/17/25 08:21 Urine RBC None /hpf (0-2) 03/17/25 08:21 Urine WBC None /hpf (0-5) 03/17/25 08:21 Ur Squamous Epith Cells None /hpf (0-5) 03/17/25 08:21 Amorphous Sediment Not Reportable 03/17/25 08:21 Urine Bacteria 2+ /hpf (NONE) H 03/17/25 08:21 Vancomycin Trough 16.8 ug/mL (10-15) H 03/20/25 13:27 Influenza A (PCR) Negative (Negative) 03/17/25 07:50 Influenza Type B (PCR) Negative (Negative) 03/17/25 07:50 RSV (PCR) Negative (Negative) 03/17/25 07:50 SARS-CoV-2 (PCR) Negative (Negative) 03/17/25 07:50 Vitals Last Vital Signs Temp 98.1 F 03/20/25 16:00 Pulse 65 03/20/25 16:00 Resp 17 03/20/25 16:00 BP 143/85 03/20/25 16:00 Pulse Ox 92 03/20/25 16:00 O2 Del Method Room Air 03/20/25 16:00 O2 Flow Rate 2 03/17/25 15:15 Discharge Plan Discharge Patient Disposition: Home Condition: Stable Prescriptions: No Action atorvastatin 40 mg tablet 20 mg PO DAILY doxazosin 8 mg tablet 4 mg PO DAILY lactulose 10 gram/15 mL solution 10 g PO BID sildenafil 100 mg tablet 100 mg PO DAILY PRN (Reason: Erectile Dysfunction) Rx Instructions: administer 30 minutes to 4 hours before activity trazodone 150 mg tablet 300 mg PO BEDTIME PRN (Reason: Sleep) zolpidem 5 mg tablet 5 mg PO BEDTIME diazepam 10 mg tablet 10 mg PO ONCE PRN (Reason: anxiety) 1 Days Qty: 2 4RF Rx Instructions: Take 1 prior to procedure and repeat if necessary citalopram 20 mg tablet 40 mg PO DAILY Qty: 180 3RF zonisamide 100 mg capsule 500 mg PO DAILY Qty: 450 3RF Rx Instructions: 5 daily with supper lisinopril 30 mg Tablet 30 mg PO DAILY acetaminophen-codeine 300-30 mg tablet 1 tab PO .Q4-6H lamotrigine 100 mg Tablet 100 mg PO BID Referrals: Juancarlos Waldron MD [Physician, General Surgery] Jacinto Moore PA-C [Primary Care Provider] Patient Instructions: Abdominal Pain (ED), Opioid Safety, Patient Portal & Janel Instructions Coding Level of Care Code Acute Code for g [facility] Diagnoses Acute appendicitis with rupture K35.32
--- NOTE | 2025-03-20 17:36 | PM.PN ---
Subjective Subjective: 03/18/25 Leydi Sheehan is a 59 year old male with pmhx of HTN, seizures, daytime sleepiness, headaches, former nicotine use, anxiety, depression, severe dizzy spells, ventral hernia repair with mesh, and mitral valve regurgitation/prolapse s/p mitral valve replacement presenting with complaints of abdominal pain. Procedure done: Laparoscopic appendectomy with Surgeon Juancarlos Waldron MD Specimens removed/disposition: Appendix Pathology: Peritoneal fluid cultures, appendix Post-op diagnosis: Perforated acute appendicitis with feculent peritonitis and abscess 03/19/25 Post op day two. Patient walked at least 250 feet with his and tolerated well. He does have pain - managed. Patient able to tolerate some food. Needs to have a BM. Discharge planning. 03/20/25 Post op day 3. Patient has tolerable abdominal pain. Maintains activity. Patient had BM today in the 1700 hour after colace, miralax, enema. Discharge pending with General Surgery, Dr. Waldron. Vitals/I&O/Wt Last Vital Signs Temp 98.1 F 03/20/25 16:00 Pulse 65 03/20/25 16:00 Resp 17 03/20/25 16:00 BP 143/85 03/20/25 16:00 Pulse Ox 92 03/20/25 16:00 O2 Del Method Room Air 03/20/25 16:00 O2 Flow Rate 2 03/17/25 15:15 03/20/25 03/20/25 03/20/25 06:59 14:59 22:59 Intake Total 50 / 2830 1310 / 1310 300 / 1610 Output Total 600 / 1800 1625 / 1625 Balance -550 / 1030 -315 / -315 300 / -15 Weight last 48 hrs Weight 117.027 kg Weight 121.733 kg Physical Exam Const: COMMON NORMALS: no acute distress, patient oriented x3 and well nourished Resp: COMMON NORMALS: normal respiratory effort, No retractions and No use of accessory muscles Cardio: COMMON NORMALS: regular rhythm and No murmurs present (Cardio) RHYTHM: regular rhythm GI: OTHER: Generalized tenderness but significantly tender in the lower quadrants Neuro: COMMON NORMALS: patient oriented x3 Skin: COMMON NORMALS: no rashes or lesions noted and no wounds GENERAL SKIN EXAM: no rashes or lesions noted Urinary Catheter Management: Lackey: Cath Placed During This Visit: yes, but has since been removed by the nurse Reason for Continuing Indwelling Catheter: Decision to DC Catheter Urinary Catheter Date of Insertion: 03/17/25 Urinary Catheter Time of Insertion: 10:23 Date Urinary Catheter Removed: 03/18/25 Time Urinary Catheter Discontinued: 06:10 Data 03/20/25 04:56 03/20/25 04:56 Micro: Microbiology 03/17/25 10:51 Gram Stain - Final Peritoneal Fluid Anaerobic Culture - Preliminary Body Fluid Culture - Final Pseudomonas aeruginosa Escherichia coli A&P Assessment and plan 1. Acute appendicitis with rupture: Status post emergent OR intervention Patient tolerated the procedure well - transferred stable to PACU then [facility] Procedure done: Laparoscopic appendectomy Specimens removed/disposition: Appendix Pathology: Peritoneal fluid cultures, appendix Post-op diagnosis: Perforated acute appendicitis with feculent peritonitis and abscess Surgeon Juancarlos Waldron MD Pain management Patient had bowel movement today after enema Tolerating foods 2. Sepsis without acute organ dysfunction, due to unspecified organism: Patient taken urgently to the OR Intrabdominal source of infection due to the above Antibiotics Florastor Fluid resuscitation Stable 3. Seizures: Seizure occurrences began after a 2018 heart surgery Last seizure one month ago and neurology did adjust AEDs Patient had seizure like episodes of shaking and jitters around 02/19/25 ? Continue home medications 4. Chronic migraine without aura, intractable, with status migrainosus: Continue home regimen Regimen includes caffeine, exercise, medical management 5. Chronic fatigue: With daytime sleepiness Continue home regimen including trazodone and zolpidem 6. Plantar fasciitis: Patient normally very active, walks large dog Plantar fasciitis surgery planning for 04/03/25 Fall risk precautions 7. Anxiety and depression: In part secondary to seizures and chronic medical symptoms Continue home regimen 8. Hypertension, unspecified type: Controlled Continue home medications PDMP PDMP Reviewed: Not Reviewed Attestations Medical Necessity Statement*: Patient continue hospitalization for less than 2 midnights with discharge planning from primary team. Diagnoses Acute appendicitis with rupture K35.32 Sepsis without acute organ dysfunction, due to unspecified organism A41.9 Sepsis acute organ dysfunction status: without acute organ dysfunction Sepsis type: sepsis due to unspecified organism Seizures R56.9 Chronic migraine without aura, intractable, with status migrainosus G43.711 Chronic fatigue R53.82 Plantar fasciitis M72.2 Anxiety and depression F41.9; F32.A Hypertension, unspecified type I10 Hypertension type: unspecified
[2025-03-21 01:49] VITALS: RESP 16
[2025-03-21] MEDS: piperacillin-tazobactam 3.375 GM in sodium chloride 0.9% (plus) 50 ML IV (01:49)
[2025-03-21] MEDS: oxyCODONE 5 mg IR Tab/Cap PO (01:49)
[2025-03-21 04:00] VITALS: BP 139/88; PULSE 63; RESP 17; TEMP 36.6; O2SAT 91
[2025-03-21] MEDS: polyethylene glycol 3350 Pkt 17 gm PO (05:52)
[2025-03-21 07:21] VITALS: BP 135/79; PULSE 63; RESP 18; TEMP 37; O2SAT 96
--- NOTE | 2025-03-21 08:31 | P.DS_ITS ---
Discharge Providers Date of Admission: 03/17/25 14:27 Date of Discharge: March 21, 2025 Attending Provider at Admission: Juancarlos Waldron MD Attending Provider at Discharge: Juancarlos Waldron MD Primary Care Provider: Jacinto Moore PA-C Diagnoses at Discharge Discharge Diagnosis 1. Acute appendicitis with rupture: 2. Sepsis without acute organ dysfunction, due to unspecified organism: 3. Seizures: 4. Chronic migraine without aura, intractable, with status migrainosus: 5. Chronic fatigue: 6. Plantar fasciitis: 7. Anxiety and depression: 8. Hypertension, unspecified type: Reason for Visit Reason for Visit: abdominal pain Brief History: 59-year-old male presented to the [facility] with perforated acute appendicitis with feculent peritonitis. Patient denies any significant abdominal pain, tolerating diet having bowel movements. Physical Exam GI: OTHER: Abdomen is soft nontender nondistended, surgical incisions covered with dressing and CARROL drain removed at the bedside Urinary Catheter Management: Lackey: Cath Placed During This Visit: yes, but has since been removed by the nurse Reason for Continuing Indwelling Catheter: Decision to DC Catheter Urinary Catheter Date of Insertion: 03/17/25 Urinary Catheter Time of Insertion: 10:23 Date Urinary Catheter Removed: 03/18/25 Time Urinary Catheter Discontinued: 06:10 Discharge Data Studies Completed and Pending Completed Studies During Hospitalization Category Date Time Status CT abdomen pelvis w con* [id number] Stat Cat Scan 03/17/25 07:52 Completed XR chest 1V portable [id number] Stat Exams 03/17/25 12:26 Completed Pathology: Surgical [PTH] Routine Pth 03/17/25 12:12 Completed CV. echo complete* [id number] Routine Ultrasound 03/17/25 12:21 Completed Pending at discharge Category Date Time Status Anaerobic Culture Routine Lab 03/17/25 10:51 Results Body Fluid Culture & GS Routine Lab 03/17/25 10:51 Results Radiology Impressions Abdomen/Pelvis CT 03/17/25 07:52 IMPRESSION: 1. Acute appendicitis with distended fecalized appendix with a few small locules of surrounding air compatible with perforation. No evidence of drainable abscess or fluid collection. 2. Small amount of free fluid in the pelvis. 3. Small LEFT pleural effusion. Notified Mikaela Landeros MD at 03/17/2025 9:16 AM. Chest X-Ray 03/17/25 12:26 IMPRESSION: 1. Cardiomegaly. No acute process noted. Laboratory Results WBC 10.27 10^3/uL (3.29-11.43) 03/20/25 04:56 RBC 4.05 10^6/uL (3.85-5.65) 03/20/25 04:56 Hgb 12.30 g/dL (11.27-16.99) 03/20/25 04:56 Hct 37.1 % (37-53) 03/20/25 04:56 MCV 91.6 fl (82-101) 03/20/25 04:56 MCH 30.4 pg (27-33) 03/20/25 04:56 MCHC 33.2 g/dL (30-55) 03/20/25 04:56 RDW 13.9 % (12.1-15.1) 03/20/25 04:56 Plt Count 156 10^3/cmm (157-399) L 03/20/25 04:56 MPV 9.8 fL (7.4-10.4) 03/20/25 04:56 Neut % (Auto) 80.8 % 03/20/25 04:56 Lymph % (Auto) 9.1 % 03/20/25 04:56 [place] % (Auto) 6.3 % 03/20/25 04:56 Eos % (Auto) 3.0 % 03/20/25 04:56 Baso % (Auto) 0.3 % 03/20/25 04:56 Neut # (Auto) 8.30 10^3/uL (1.8-7.7) H 03/20/25 04:56 Lymph # (Auto) 0.9 10^3/uL (0.8-4.8) 03/20/25 04:56 [place] # (Auto) 0.7 10^3/uL (0.2-0.9) 03/20/25 04:56 Eos # (Auto) 0.3 10^3/uL (0.0-0.8) 03/20/25 04:56 Baso # (Auto) 0.0 10^3/uL (0.0-0.1) 03/20/25 04:56 Nucleated RBC % (auto) 0 % 03/20/25 04:56 Nucleated RBCs # 0.0 /100WBC 03/20/25 04:56 Sodium 139 mmol/L (136-145) 03/20/25 04:56 Potassium 3.8 mmol/L (3.5-5.1) 03/20/25 04:56 Chloride 107 mmol/L (98-107) 03/20/25 04:56 Carbon Dioxide 21 mmol/L (22-29) L 03/20/25 04:56 Anion Gap 14.8 (5-19) 03/20/25 04:56 BUN 19 mg/dL (6-20) 03/20/25 04:56 Creatinine 0.8 mg/dL (0.7-1.2) 03/20/25 04:56 GFR Calculation 98.9 mL/min (90-130) 03/20/25 04:56 Glucose 102 mg/dL (65-115) 03/20/25 04:56 Calculated Osmolality 290 mOsm/kg (285-295) 03/20/25 04:56 Lactic Acid 1.7 mmol/L (0.5-2.2) 03/17/25 07:41 Calcium 8.5 mg/dL (8.5-10.5) 03/20/25 04:56 Phosphorus 3.2 mg/dL (2.5-4.5) 03/20/25 04:56 Magnesium 1.9 mg/dL (1.7-2.3) 03/20/25 04:56 Total Bilirubin 1.0 mg/dL (0.15-1.2) 03/17/25 07:41 AST 16 U/L (0-40) 03/17/25 07:41 ALT 22 U/L (0-41) 03/17/25 07:41 Alkaline Phosphatase 74 U/L (40-130) 03/17/25 07:41 C-Reactive Protein 82.2 mg/L (0.0-4.9) H 03/17/25 07:41 Total Protein 7.1 g/dL (6.6-8.7) 03/17/25 07:41 Albumin 4.3 g/dL (3.5-5.2) 03/17/25 07:41 Globulin 2.8 g/dL (1.3-4.6) 03/17/25 07:41 Lipase 74 U/L (13-60) H 03/17/25 07:41 Urine Color Yellow (Yellow) 03/17/25 08:21 Urine Appearance Cloudy (CLEAR) A 03/17/25 08:21 Urine pH 8.0 (5-7) A 03/17/25 08:21 Ur Specific [place] 1.018 (1.005-1.030) 03/17/25 08:21 Urine Protein Negative (Negative) 03/17/25 08:21 Urine Glucose (UA) Negative (Normal) 03/17/25 08:21 Urine Ketones Negative (Negative) 03/17/25 08:21 Urine Blood Negative (Negative) 03/17/25 08:21 Urine Nitrate Negative (Negative) 03/17/25 08:21 Urine Bilirubin Negative (Negative) 03/17/25 08:21 Urine Urobilinogen 0.2 mg/dL (Negative) 03/17/25 08:21 Ur Leukocyte Esterase Negative (Negative) 03/17/25 08:21 Urine RBC None /hpf (0-2) 03/17/25 08:21 Urine WBC None /hpf (0-5) 03/17/25 08:21 Ur Squamous Epith Cells None /hpf (0-5) 03/17/25 08:21 Amorphous Sediment Not Reportable 03/17/25 08:21 Urine Bacteria 2+ /hpf (NONE) H 03/17/25 08:21 Vancomycin Trough 16.8 ug/mL (10-15) H 03/20/25 13:27 Influenza A (PCR) Negative (Negative) 03/17/25 07:50 Influenza Type B (PCR) Negative (Negative) 03/17/25 07:50 RSV (PCR) Negative (Negative) 03/17/25 07:50 SARS-CoV-2 (PCR) Negative (Negative) 03/17/25 07:50 Vitals Last Vital Signs Temp 98.6 F 03/21/25 07:21 Pulse 63 03/21/25 07:21 Resp 18 03/21/25 07:21 BP 135/79 03/21/25 07:21 Pulse Ox 96 03/21/25 07:21 O2 Del Method Room Air 03/21/25 07:21 O2 Flow Rate 2 03/17/25 15:15 Discharge Plan Discharge Patient Disposition: Home Condition: Stable Prescriptions: New oxycodone 5 mg tablet 5 mg PO Q8H PRN (Reason: pain) 5 Days Qty: 14 0RF amoxicillin-pot clavulanate 875-125 mg tablet 1 tab PO BID 7 Days Qty: 14 0RF polyethylene glycol 3350 [Miralax] 17 gram powder in packet 17 g PO DAILY 7 Days Qty: 7 0RF Continued atorvastatin 40 mg tablet 20 mg PO DAILY doxazosin 8 mg tablet 4 mg PO DAILY lactulose 10 gram/15 mL solution 10 g PO BID sildenafil 100 mg tablet 100 mg PO DAILY PRN (Reason: Erectile Dysfunction) Rx Instructions: administer 30 minutes to 4 hours before activity trazodone 150 mg tablet 300 mg PO BEDTIME PRN (Reason: Sleep) zolpidem 5 mg tablet 5 mg PO BEDTIME diazepam 10 mg tablet 10 mg PO ONCE PRN (Reason: anxiety) 1 Days Qty: 2 4RF Rx Instructions: Take 1 prior to procedure and repeat if necessary citalopram 20 mg tablet 40 mg PO DAILY Qty: 180 3RF zonisamide 100 mg capsule 500 mg PO DAILY Qty: 450 3RF Rx Instructions: 5 daily with supper lisinopril 30 mg Tablet 30 mg PO DAILY lamotrigine 100 mg Tablet 100 mg PO BID Discontinued acetaminophen-codeine 300-30 mg tablet 1 tab PO .Q4-6H Discharge Order = DC NOW: Discharge Order (Routine); Ordered 03/21/25 Ordered By: Juancarlos Waldron Referrals: Juancarlos Waldron MD [Physician, General Surgery] Referral Note: 2 weeks Jacinto Moore PA-C [Primary Care Provider] Discharge Diet: GI Soft Discharge Activity: Limit activity as instructed Patient Instructions: Abdominal Pain (ED), Opioid Safety, Patient Portal & Janel Instructions Activity Restrictions/Additional Instructions: General Instructions: Please do not lift anything heavier than 10 pounds, for the next 4 to 6 weeks. You can walk is much as possible, this will help you recover faster. You can shower starting the day after tomorrow, let soap and water run over your wound and then pat dry. Please take your medication as indicated if you are taking opioids please do not forget to take a stool softener Warning signs: Return to the hospital if you have fever, chills, severe abdominal pain that is getting worse over time despite your pain medication or if your eyes or skin are turning yellow Discharge Attestations Time Spent in Discharge Care*: less than 30 min Quality Metrics Clinical Quality Measures [ No reported AMI, CVA or VTE this stay] Coding Level of Care Code Acute Code for Chg Fwd Diagnoses Acute appendicitis with rupture K35.32 Sepsis without acute organ dysfunction, due to unspecified organism A41.9 Sepsis type: sepsis due to unspecified organism Sepsis acute organ dysfunction status: without acute organ dysfunction Seizures R56.9 Chronic migraine without aura, intractable, with status migrainosus G43.711 Chronic fatigue R53.82 Plantar fasciitis M72.2 Anxiety and depression F41.9; F32.A Hypertension, unspecified type I10 Hypertension type: unspecified
[2025-03-21 10:27] VITALS: BP 135/79; PULSE 63; RESP 18; TEMP 37; O2SAT 96
== END 2025-03-21 10:28 | disposition home or self-care (01) | DRG 853 ==
LOC: ER 09:30 → OR 09:47 → MEDSURG 15:50
PROVIDERS: Internal Medicine; Admitting Provider Surgery; Emergency Provider Emergency Medicine; PCP Physician Assistant; Visit Provider Surgery
PROC: 0DTJ4ZZ Resection of Appendix, Percutaneous Endoscopic Approach (ICD-10-PCS; CPT 44970; principal; 2025-03-17 10:00)
DX: A41.9 Sepsis, unspecified organism (principal); K35.33 Acute appendicitis with perforation, localized peritonitis, and gangrene, with abscess; G40.909 Epilepsy, unspecified, not intractable, without status epilepticus; G43.909 Migraine, unspecified, not intractable, without status migrainosus; R53.82 Chronic fatigue, unspecified; M72.2 Plantar fascial fibromatosis; F41.9 Anxiety disorder, unspecified; F32.A Depression, unspecified; I10 Essential (primary) hypertension; Z87.891 Personal history of nicotine dependence; Z95.2 Presence of prosthetic heart valve; Z98.890 Other specified postprocedural states
CPT/HCPCS: 36415; 51702; 71045; 74177; 80048; 80053; 80202; 81001; 83605; 83690; 83735; 84100; 85025; 86140; 87070; 87075; 87077; 87186; 87205; 87637; 88304; 93005; 93306; 96365; 96375; 99285; A4216; J0330; J1100; J1171; J1885; J2250; J2270; J2405; J2470; J2543; J2704; J3010; J3373; J3490; J7030; J7120; J9999

== ENCOUNTER → 2025-04-01 08:32 | Outpatient (BNVA) | payer OTHER, SELFPAY | PROVIDERS: PCP Physician Assistant; Visit Provider Surgery | DX: Z98.890 Other specified postprocedural states (principal); Z90.49 Acquired absence of other specified parts of digestive tract | CPT/HCPCS: 99024 ==